=== PATIENT | female | born 1975 | race Caucasian/White ===

== ENCOUNTER 2016-09-06 16:31 | Emergency (ER) | payer OTHER ==
[~2016-09-06] VITALS: Ht 162.6 cm; Wt 102.9 kg
[~2016-09-06 16:31] MED LIST: CYAN10005 PO; GABA-112 PO; SUMA50TA15 PO
[2016-09-06 16:45] VITALS: TEMP 36.6; Ht 162.6 cm; Wt 102.9 kg
[2016-09-06] MEDS ORDERED: MoRPHine SULFATE 4 MG/ML 1 ML CARP\\VIAL IV STA (16:56)
[2016-09-06] MEDS ORDERED: ONDANSETRON INJ 2 MG/ML 2 ML VIAL IV STA (16:56)
[2016-09-06] MEDS ORDERED: LAMO100T16 PO (17:08)
[2016-09-06 17:24] LABS: BASO % 0.5 %; BASO ABS # 0.06 K/uL (0-0.2); COMPLETE YES; EOS % 1.6 %; IG% 0.4 %; LYMPH % 28.4 %; LYMPH ABS # 3.47 K/uL (1.2-3.4); MEAN CELL VOLUME 90.7 fL (80-100); MEAN CORPUSCULAR HEMOGLOBIN 30.1 pg (25-34); MEAN CORPUSCULAR HGB CONC 33.2 g/dl (32-36); MEAN PLATELET VOLUME 10.1 fL (7.4-10.4); MONO % 8.4 %; NEUT % 60.7 %; PLATELET COUNT 309 K/uL (130-400); RED BLOOD COUNT 4.52 M/uL (4.2-5.4); WHITE BLOOD COUNT 12.21 K/uL (4.8-10.8)
[2016-09-06 17:43] LABS: URINE APPEARANCE CLOUDY (CLEAR); URINE BILIRUBIN NEG (NEG); URINE COLOR YELLOW; URINE EPITHELIAL CELL AUTO >30 /lpf (0-5); URINE NITRITE NEG (NEG); URINE SPECIFIC GRAVITY 1.026 (1.000-1.030); UROBILINOGEN NEG (NEG)
[2016-09-06 17:48] LABS: MANUAL MICROSCOPIC REQUIRED? NO; REVIEW REQ? YES
--- NOTE | 2016-09-06 17:52 | DIAGNOSTIC IMAGING REPORT ---
ABDOMEN AND PELVIS CT WITHOUT CONTRAST CT DOSE: 1638.05 mGy.cm HISTORY: Left lower quadrant pain. eval for left stone TECHNIQUE: Multiaxial CT images of the abdomen and pelvis were performed without the use of intravenous and oral contrast according to the standard department stone protocol. COMPARISON STUDY: Abdomen and pelvis CT 09/29/2011. FINDINGS: Stable subcentimeter nodules within the left lower lobe on images 10 and 20 which measure up to 3 mm. These are considered to be benign. No acute fractures within the visualized osseous structures. Old, healed right-sided rib fractures. Small gallstones. The unenhanced liver, spleen, adrenal glands, and pancreas are unremarkable. The bladder is decompressed but likely within normal limits. The uterus and bilateral adnexa are unremarkable. Suboptimal evaluation for bowel pathology due to the lack of intravenous and oral contrast. However, there is no definite bowel wall thickening or obstruction. Colonic diverticulosis. Normal appendix. No renal or ureteral stones. No hydronephrosis. IMPRESSION: 1. No renal stones or hydronephrosis. 2. Cholelithiasis. 3. No bowel wall thickening or obstruction. Electronically signed by: Rome Song M.D. 09/06/2016 5:50 PM Dictated Date/Time: 09/06/2016 5:46 PM
[2016-09-06] MEDS ORDERED: KETOROLAC TROMETHAMINE 30 MG/ML VIAL IV STA (18:05)
[2016-09-06 18:09] LABS: ALKALINE PHOSPHATASE 65 U/L (45-117); ALT/SGPT 27 U/L (12-78); BLOOD UREA NITROGEN 8 mg/dl (7-18); BUN/CREATININE RATIO 8.1 (10-20); CARBON DIOXIDE 22 mmol/L (21-32); CHLORIDE 110 mmol/L (98-107); CREATININE 0.93 mg/dl (0.60-1.20); GLUCOSE 91 mg/dl (70-99); SODIUM 139 mmol/L (136-145)
[2016-09-06] MEDS ORDERED: OXYCODONE IR HOME PACK PO ONE (18:30)
[2016-09-06 18:43] VITALS: BP 109/66; PULSE 67; O2SAT 98
[2016-09-06] MEDS ORDERED: IBUP-1050 PO (21:32)
--- NOTE | 2016-09-06 23:00 | EMERGENCY ROOM VISIT NOTE ---
History Report prepared by Dwaine: Rachele Taylor Under the Supervision of: Dr. Marcos Bull M.D. First contact with patient: 16:48 Chief Complaint: ABDOMINAL PAIN Stated Complaint: LOWER LEFT QUADRANT PAIN History of Present Illness The patient is a 41 year old female who presents to the Emergency Room with complaints of worsening LLQ pain starting yesterday. It began yesterday and resolved after some time. Today the pain began again and was worse that it was initially. She notes that the pain is not as severe as her previous kidney stone and is in a different location. She had pain in her back with her kidney stone. She describes her pain as constant with occasional sharp pain. With the sharp pain she feels lightheaded. The pain does not go into her side. She denies any fever, vomiting, diarrhea, bloody stools, problems urinating, or hematuria. 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 Source of History: patient Onset: yesterday Position: abdomen (LLQ) Quality: sharp Timing: constant, worsening Associated Symptoms: No fevers, No vomiting, No hematochezia, No diarrhea, No urinary symptoms Note: Pt reports feeling lightheaded with the pain. Review of Systems See HPI for pertinent positives & negatives. A total of 10 systems reviewed and were otherwise negative. Past Medical & Surgical Medical Problems: (1) Kidney stones Family History Cancer Diabetes mellitus Kidney disease Kidney stones Social History Smoking Status: Current Every Day Smoker Marital Status: single Housing Status: lives with family Occupation Status: unemployed Current/Historical Medications Scheduled Lamotrigine (Lamictal), 100 MG PO DAILY Scheduled PRN Ibuprofen (Advil), 400 MG PO UD PRN for Headache or Pain Sumatriptan Succinate (Imitrex), 50 MG PO UD PRN for Migraine Allergies Coded Allergies: Metoclopramide (Verified Allergy, Unknown, tachycardia,dystonia, 03/26/16) Physical Exam Vital Signs Date Time Temp Pulse Resp B/P (MAP) Pulse Ox O2 Delivery O2 Flow Rate FiO2 09/06/16 18:43 67 18 109/66 98 09/06/16 17:55 61 16 111/59 96 Room Air 09/06/16 16:45 36.6 74 16 129/67 97 Room Air Physical Exam Constitutional: Vital signs reviewed. Eyes: Pupils are equal round reactive to light. Conjunctiva are noninjected. ENT: Pharynx is clear without erythema or exudate. Mucous membranes are moist. Neck supple without meningeal signs. Respiratory: Clear to auscultation bilaterally. Breath sounds are equal bilaterally. Cardiovascular: Regular rate and rhythm. No rubs or gallops. GI: Soft, nondistended with LLQ tenderness. Bowel sounds are present. Musculoskeletal: No peripheral edema. No CVA tenderness. Integumentary: No cyanosis. Neurological: The patient is awake and alert. No focal deficits. Psychiatric: Normal affect. Medical Decision & Procedures ER Provider Diagnostic Interpretation: Radiology results as stated below per my review and the radiologist's interpretation: ABDOMEN AND PELVIS CT WITHOUT CONTRAST CT DOSE: 1638.05 mGy.cm HISTORY: Left lower quadrant pain. eval for left stone TECHNIQUE: Multiaxial CT images of the abdomen and pelvis were performed without the use of intravenous and oral contrast according to the standard department stone protocol. COMPARISON STUDY: Abdomen and pelvis CT 09/29/2011. FINDINGS: Stable subcentimeter nodules within the left lower lobe on images 10 and 20 which measure up to 3 mm. These are considered to be benign. No acute fractures within the visualized osseous structures. Old, healed right-sided rib fractures. Small gallstones. The unenhanced liver, spleen, adrenal glands, and pancreas are unremarkable. The bladder is decompressed but likely within normal limits. The uterus and bilateral adnexa are unremarkable. Suboptimal evaluation for bowel pathology due to the lack of intravenous and oral contrast. However, there is no definite bowel wall thickening or obstruction. Colonic diverticulosis. Normal appendix. No renal or ureteral stones. No hydronephrosis. IMPRESSION: 1. No renal stones or hydronephrosis. 2. Cholelithiasis. 3. No bowel wall thickening or obstruction. Electronically signed by: Rome Song M.D. 09/06/2016 5:50 PM Dictated Date/Time: 09/06/2016 5:46 PM Laboratory Results 09/06/16 17:05 Red Blood Count 4.52, Mean Corpuscular Volume 90.7, Mean Corpuscular Hemoglobin 30.1, Mean Corpuscular Hemoglobin Concent 33.2, Mean Platelet Volume 10.1, Neutrophils (%) (Auto) 60.7, Lymphocytes (%) (Auto) 28.4, Monocytes (%) (Auto) 8.4, Eosinophils (%) (Auto) 1.6, Basophils (%) (Auto) 0.5, Neutrophils # (Auto) 7.40, Lymphocytes # (Auto) 3.47, Monocytes # (Auto) 1.03, Eosinophils # (Auto) 0.20, Basophils # (Auto) 0.06 09/06/16 17:05 Test 09/06/16 00:00 09/06/16 17:05 Urine Color YELLOW Urine Appearance CLOUDY (CLEAR) Urine pH 5.0 (4.5-7.5) Urine Specific [place] 1.026 (1.000-1.030) Urine Protein NEG (NEG) Urine Glucose (UA) NEG (NEG) Urine Ketones TRACE (NEG) Urine Occult Blood 2+ (NEG) Urine Nitrite NEG (NEG) Urine Bilirubin NEG (NEG) Urine Urobilinogen NEG (NEG) Urine Leukocyte Esterase NEG (NEG) Urine WBC (Auto) 1-5 /hpf (0-5) Urine RBC (Auto) 0-4 /hpf (0-4) Urine Hyaline Casts (Auto) 1-5 /lpf (0-5) Urine Epithelial Cells (Auto) >30 /lpf (0-5) Urine Bacteria (Auto) 1+ (NEG) Urine Crystals CALCIUM OXALATE (NONE White Blood Count 12.21 K/uL (4.8-10.8) Red Blood Count 4.52 M/uL (4.2-5.4) Hemoglobin 13.6 g/dL (12.0-16.0) Hematocrit 41.0 % (37-47) Mean Corpuscular Volume 90.7 fL (80-100) Mean Corpuscular Hemoglobin 30.1 pg (25-34) Mean Corpuscular Hemoglobin Concent 33.2 g/dl (32-36) Platelet Count 309 K/uL (130-400) Mean Platelet Volume 10.1 fL (7.4-10.4) Neutrophils (%) (Auto) 60.7 % Lymphocytes (%) (Auto) 28.4 % Monocytes (%) (Auto) 8.4 % Eosinophils (%) (Auto) 1.6 % Basophils (%) (Auto) 0.5 % Neutrophils # (Auto) 7.40 K/uL (1.4-6.5) Lymphocytes # (Auto) 3.47 K/uL (1.2-3.4) Monocytes # (Auto) 1.03 K/uL (0.11-0.59) Eosinophils # (Auto) 0.20 K/uL (0-0.5) Basophils # (Auto) 0.06 K/uL (0-0.2) RDW Standard Deviation 43.2 fL (36.4-46.3) RDW Coefficient of Variation 13.0 % (11.5-14.5) Immature Granulocyte % (Auto) 0.4 % Immature Granulocyte # (Auto) 0.05 K/uL (0.00-0.02) Urine Test NEG (NEG) Anion Gap 7.0 mmol/L (3-11) Est Creatinine Clear Calc Drug Dose 92.1 ml/min Estimated GFR () 87.9 Estimated GFR (Non- 75.8 BUN/Creatinine Ratio 8.1 (10-20) Calcium Level 9.0 mg/dl (8.5-10.1) Total Bilirubin 0.2 mg/dl (0.2-1) Direct Bilirubin mg/dl (0-0.2) Aspartate Amino Transf (AST/SGOT) U/L (15-37) Alanine Aminotransferase (ALT/SGPT) 27 U/L (12-78) Alkaline Phosphatase 65 U/L (45-117) Total Protein 7.4 gm/dl (6.4-8.2) Albumin 3.4 gm/dl (3.4-5.0) Lipase 132 U/L (73-393) Laboratory results as reviewed by me. Medications Administered Medications (Trade) Dose Ordered Sig/Solomon Route Start Time Stop Time Status Last Admin Dose Admin Morphine Sulfate (MoRPHine SULFATE INJ) 4 mg ONE STAT IV 09/06/16 16:56 09/06/16 16:57 DC 09/06/16 17:20 4 MG Ondansetron HCl (Zofran Inj) 4 mg NOW STAT IV 09/06/16 16:56 09/06/16 16:57 DC 09/06/16 17:20 4 MG Ketorolac Tromethamine (Toradol Inj) 10 mg NOW STAT IV 09/06/16 18:05 09/06/16 18:06 DC 09/06/16 18:16 10 MG Oxycodone HCl (Roxicodone Immediate Rel 5MG Home Pack) 1 homepack UD ONCE PO 09/06/16 18:30 09/06/16 18:31 DC 09/06/16 18:40 1 HOMETXCK ED Course 1651: The patient was evaluated in room B3B. A complete history and physical exam was performed. 1655: Zofran Inj 4 mg IV, Morphine Sulfate 4 mg IV. 1802: I reevaluated the patient. She is feeling better, but still has some pain. I reviewed the CT results with her. 1804: Toradol Inj 10 mg IV. 1820: Upon reevaluation, the patient appeared to have improvement of her symptoms. I discussed tonight's findings with her. She verbalized agreement of the treatment plan. She was discharged home. 1829: Oxycodone HCl 1 homepack PO. Medical Decision This is a 41-year-old female who presents with left sided abdominal pain. Differential diagnosis includes renal colic, hydronephrosis, diverticulitis, abscess, perforation, strain, mass. I did perform a limited focused review of portions of the patient's old chart on the electronic medical record. The patient had a CT abdomen pelvis in 2011 which showed left kidney stone. Medication Reconciliation: I attest that I have personally reviewed the patient' s current medication list. Blood Pressure Screening: Patient was found to have a slightly elevated blood pressure due to circumstances. I do not believe that the patient requires hypertension monitoring. I did evaluate the patient as noted above. IV access was established. I did treat patient with IV morphine and Zofran. I did order and personally review the patient's urine analysis as described above. She has calcium oxalate crystals and hematuria. I did order and review the patient's blood work as noted in the electronic medical record. Her white blood cell count is slightly elevated. This is a nonspecific finding. I did order a CT of the abdomen and pelvis. I did review the images myself as well as the radiology report as described above. There is no evidence of acute process in the abdomen and pelvis. Given that the patient has some hematuria and calcium oxalate crystals , it is possible that she may have passed a stone. I did recommend she follow up with her doctor closely as the exact etiology of her pain is clear. She was discharged in good condition. Impression Primary Impression: Left flank pain Scribe Attestation The scribe's documentation has been prepared under my direct and personally reviewed by me in its entirety. I confirm that the note above accurately reflects all work, treatment, procedures, and medical decision making performed by me. Departure Information Dispostion Home / Self-Care Referrals Dorys Quintero M.D. (PCP) Forms Call Back Authorization, HOME CARE DOCUMENTATION FORM, IMPORTANT VISIT INFORMATION Patient Instructions ED Flank Pain Uncertain Cause, My [facility] Additional Instructions You have been examined and treated today on an emergency basis only. This is not a substitute for, or an effort to provide, complete comprehensive medical care. It is impossible to recognize and treat all injuries or illnesses in a single emergency department visit. It is therefore important that you follow up closely with your physician. Call as soon as possible for an appointment. Return for worsening symptoms or if you develop fever, vomiting, or any other concerning symptoms.
== END 2016-09-06 18:45 | disposition home or self-care (01) ==
LOC: C.EDB 16:32
DX: R10.32 Left lower quadrant pain (principal); F17.200 Nicotine dependence, unspecified, uncomplicated; Z87.442 Personal history of urinary calculi; Z88.8 Allergy status to other drugs, medicaments and biological substances; Z80.9 Family history of malignant neoplasm, unspecified; Z83.3 Family history of diabetes mellitus; Z84.1 Family history of disorders of kidney and ureter

== ENCOUNTER 2016-09-27 12:33 | Emergency (ER) | payer OTHER ==
[~2016-09-27] VITALS: Ht 162.6 cm; Wt 104.0 kg
[~2016-09-27 12:33] MED LIST changes: -CYAN10005 PO; -GABA-112 PO; +IBUP-1050 PO; +LAMO100T16 PO
[2016-09-27 12:35] VITALS: TEMP 36.6; Ht 162.6 cm; Wt 104.0 kg
[2016-09-27] MEDS ORDERED: SODIUM CHLORIDE 0.9% 1000ML 1,000 ML IV STA (12:42)
[2016-09-27] MEDS ORDERED: ONDANSETRON INJ 2 MG/ML 2 ML VIAL IV STA (12:42)
[2016-09-27] MEDS ORDERED: KETOROLAC TROMETHAMINE 30 MG/ML VIAL IV STA (12:42)
[2016-09-27] MEDS: FENTANYL CITRATE INJ 50 MCG/1 ML 2 ML VIAL IV PRN ×2 (13:03→16:41)
[2016-09-27 13:30] LABS: BASO % 0.4 %; BASO ABS # 0.04 K/uL (0-0.2); COMPLETE YES; EOS % 1.9 %; HEMATOCRIT 41.5 % (37-47); IG% 0.3 %; LYMPH ABS # 2.67 K/uL (1.2-3.4); MEAN CORPUSCULAR HEMOGLOBIN 30.3 pg (25-34); MEAN CORPUSCULAR HGB CONC 33.3 g/dl (32-36); MEAN PLATELET VOLUME 9.9 fL (7.4-10.4); MONO % 5.9 %; NEUT % 65.5 %; PLATELET COUNT 280 K/uL (130-400); RED BLOOD COUNT 4.56 M/uL (4.2-5.4); WHITE BLOOD COUNT 10.26 K/uL (4.8-10.8)
[2016-09-27 13:40] LABS: INR 0.9 (0.9-1.1); PROTHROMBIN TIME (PATIENT) 9.8 SECONDS (9.0-12.0)
[2016-09-27 13:47] LABS: BUN/CREATININE RATIO 10.8 (10-20); CALCIUM 8.8 mg/dl (8.5-10.1); CREATININE 0.89 mg/dl (0.60-1.20); POTASSIUM 3.7 mmol/L (3.5-5.1)
[2016-09-27 13:50] LABS: ALB/GLOB RATIO 0.9 (0.9-2)
--- NOTE | 2016-09-27 13:53 | DIAGNOSTIC IMAGING REPORT ---
PELVIC COMPLETE NON OB HISTORY: 41 years Female acute vaginal bleeding COMPARISON: CT abdomen and pelvis 09/06/2016 TECHNIQUE: Multiple real-time sonographic images of the pelvic structures were obtained transabdominally and transvaginally assessing grayscale appearance, color and spectral flow. FINDINGS: Transabdominal: Anteflexed uterus measures 8.6 x 3.5 x 4.9 cm. Urinary bladder is collapsed. Right ovary measures 2.3 x 1.7 x 2.1 cm with arterial inflow documented. The left ovary is not well seen transabdominally. Transvaginal: Anteflexed uterus measures 8.6 x 4.0 x 5.1 cm. Endometrium is homogeneous, 0.7 cm. Calcifications are seen along the anterior aspect of the lower uterine segment suggesting a scar. Nabothian cysts are seen seen, some of which are mildly complex measuring up to 9 x 9 mm. Bilateral ovaries are not visualized secondary to obscuring bowel gas and body habitus. No significant free pelvic fluid. IMPRESSION: 1. Limited study secondary to patient body habitus and obscuring bowel gas. Left ovary is not visualized. 2. Unremarkable sonographic appearance of the right ovary without evidence of torsion. 3. No endometrial thickening or myometrial mass. The above report was generated using voice recognition software. It may contain grammatical, syntax or spelling errors. Electronically signed by: Matt Ang M.D. 09/27/2016 1:52 PM Dictated Date/Time: 09/27/2016 1:47 PM
[2016-09-27] MEDS ORDERED: LITH300T2 PO (13:54)
[2016-09-27 14:01] LABS: PREG INTERNAL NEGATIVE QC NEG CLEAR BACKGROUND; PREG INTERNAL POSITIVE QC POS CONTROL LINE
[2016-09-27 15:30] LABS: URINE APPEARANCE CLEAR (CLEAR); URINE BILIRUBIN NEG (NEG); URINE COLOR YELLOW; URINE NITRITE NEG (NEG); URINE PH 7.5 (4.5-7.5); URINE SPECIFIC GRAVITY 1.004 (1.000-1.030); UROBILINOGEN NEG (NEG)
[2016-09-27 15:35] LABS: MANUAL MICROSCOPIC REQUIRED? NO; REVIEW REQ? YES
[2016-09-27 15:57] LABS: URINE EPITHELIAL CELL AUTO >30 /lpf (0-5)
--- NOTE | 2016-09-27 16:07 | EMERGENCY ROOM VISIT NOTE ---
History Report prepared by Shirleyibeveline: Smith Lora Under the Supervision of: Dr. Kip Lorenzo D.O. First contact with patient: 12:37 Chief Complaint: ABDOMINAL PAIN Stated Complaint: LOWER LEFT PAIN Nursing Triage Summary: LLQ pain getting worse since last night with raghu, seen here 3 wks ago and followed up with PMD for this and they are looking into a ovarian problem History of Present Illness The patient is a 41 year old female who presents to the Emergency Room with complaints of worsening LLQ abdominal pain beginning yesterday. She also complains of nausea, lightheadedness and diaphoresis. She denies any vomiting. The patient has a history of similar pain occurring about a month ago with uncertain cause. She states that her pain is thought to possibly be related to her ovary. She states that her pain is worsened with many things. Source of History: patient Onset: Yesterday Position: abdomen (LLQ) Timing: worsening Associated Symptoms: + diaphoresis, + nausea, No vomiting Note: The patient also complains of lightheadedness. Review of Systems See HPI for pertinent positives & negatives. A total of 10 systems reviewed and were otherwise negative. Past Medical & Surgical Medical Problems: (1) Kidney stones Family History Cancer Diabetes mellitus Kidney disease Kidney stones Social History Smoking Status: Current Every Day Smoker Marital Status: single Housing Status: lives with family Occupation Status: unemployed Current/Historical Medications Scheduled Lamotrigine (Lamictal), 100 MG PO DAILY [place] Carbonate ([place] Carbonate), 900 MG PO QPM Scheduled PRN Ibuprofen (Advil), 400 MG PO UD PRN for Headache or Pain Sumatriptan Succinate (Imitrex), 50 MG PO UD PRN for Migraine Allergies Coded Allergies: Metoclopramide (Verified Allergy, Unknown, tachycardia,dystonia, 03/26/16) Physical Exam Vital Signs Date Time Temp Pulse Resp B/P (MAP) Pulse Ox O2 Delivery O2 Flow Rate FiO2 09/27/16 15:50 65 20 104/54 95 Room Air 09/27/16 13:51 65 16 106/58 96 Room Air 09/27/16 12:54 58 09/27/16 12:35 36.6 59 20 107/57 97 Physical Exam CONSTITUTIONAL/VITAL SIGNS: Reviewed / noted above. GENERAL: Non-toxic in appearance. INTEGUMENTARY: Warm, dry, and [place]. HEAD: Normocephalic. EYES: without scleral icterus or trauma. ENT/OROPHARYNX: clear and moist. LYMPHADENOPATHY/NECK: Is supple without lymphadenopathy or meningismus. RESPIRATORY: Lungs clear and equal. CARDIOVASCULAR: Regular rate and rhythm. GI/ABDOMEN: Soft with tenderness to the left pelvic area . No organomegaly or pulsatile mass. No rebound or guarding. Normal bowel sounds. EXTREMITIES: Warm and well perfused. BACK: No CVA tenderness. NEUROLOGICAL: Intact without focal deficits. PSYCHIATRIC: normal affect. MUSCULOSKELETAL: Normally developed with good muscle tone. Medical Decision & Procedures ER Provider Diagnostic Interpretation: CT results as stated below per my review and radiologist interpretation: PELVIC COMPLETE NON OB FINDINGS: Transabdominal: Anteflexed uterus measures 8.6 x 3.5 x 4.9 cm. Urinary bladder is collapsed. Right ovary measures 2.3 x 1.7 x 2.1 cm with arterial inflow documented. The left ovary is not well seen transabdominally. Transvaginal: Anteflexed uterus measures 8.6 x 4.0 x 5.1 cm. Endometrium is homogeneous, 0.7 cm. Calcifications are seen along the anterior aspect of the lower uterine segment suggesting a scar. Nabothian cysts are seen seen, some of which are mildly complex measuring up to 9 x 9 mm. Bilateral ovaries are not visualized secondary to obscuring bowel gas and body habitus. No significant free pelvic fluid. IMPRESSION: 1. Limited study secondary to patient body habitus and obscuring bowel gas. Left ovary is not visualized. 2. Unremarkable sonographic appearance of the right ovary without evidence of torsion. 3. No endometrial thickening or myometrial mass. The above report was generated using voice recognition software. It may contain grammatical, syntax or spelling errors. Electronically signed by: Matt Ang M.D. Laboratory Results 09/27/16 13:00 Red Blood Count 4.56, Mean Corpuscular Volume 91.0, Mean Corpuscular Hemoglobin 30.3, Mean Corpuscular Hemoglobin Concent 33.3, Mean Platelet Volume 9.9, Neutrophils (%) (Auto) 65.5, Lymphocytes (%) (Auto) 26.0, Monocytes (%) (Auto) 5.9, Eosinophils (%) (Auto) 1.9, Basophils (%) (Auto) 0.4, Neutrophils # (Auto) 6.71, Lymphocytes # (Auto) 2.67, Monocytes # (Auto) 0.61, Eosinophils # (Auto) 0.20, Basophils # (Auto) 0.04 09/27/16 13:00 Test 09/27/16 13:00 09/27/16 14:40 White Blood Count 10.26 K/uL (4.8-10.8) Red Blood Count 4.56 M/uL (4.2-5.4) Hemoglobin 13.8 g/dL (12.0-16.0) Hematocrit 41.5 % (37-47) Mean Corpuscular Volume 91.0 fL (80-100) Mean Corpuscular Hemoglobin 30.3 pg (25-34) Mean Corpuscular Hemoglobin Concent 33.3 g/dl (32-36) Platelet Count 280 K/uL (130-400) Mean Platelet Volume 9.9 fL (7.4-10.4) Neutrophils (%) (Auto) 65.5 % Lymphocytes (%) (Auto) 26.0 % Monocytes (%) (Auto) 5.9 % Eosinophils (%) (Auto) 1.9 % Basophils (%) (Auto) 0.4 % Neutrophils # (Auto) 6.71 K/uL (1.4-6.5) Lymphocytes # (Auto) 2.67 K/uL (1.2-3.4) Monocytes # (Auto) 0.61 K/uL (0.11-0.59) Eosinophils # (Auto) 0.20 K/uL (0-0.5) Basophils # (Auto) 0.04 K/uL (0-0.2) RDW Standard Deviation 44.2 fL (36.4-46.3) RDW Coefficient of Variation 13.4 % (11.5-14.5) Immature Granulocyte % (Auto) 0.3 % Immature Granulocyte # (Auto) 0.03 K/uL (0.00-0.02) Prothrombin Time 9.8 SECONDS (9.0-12.0) Prothromb Time International Ratio 0.9 (0.9-1.1) Activated Partial Thromboplast Time 25.4 SECONDS (21.0-31.0) Partial Thromboplastin Ratio 1.0 Anion Gap 7.0 mmol/L (3-11) Est Creatinine Clear Calc Drug Dose 96.8 ml/min Estimated GFR () 92.7 Estimated GFR (Non- 79.9 BUN/Creatinine Ratio 10.8 (10-20) Calcium Level 8.8 mg/dl (8.5-10.1) Total Bilirubin 0.2 mg/dl (0.2-1) Aspartate Amino Transf (AST/SGOT) 12 U/L (15-37) Alanine Aminotransferase (ALT/SGPT) 25 U/L (12-78) Alkaline Phosphatase 61 U/L (45-117) Total Protein 7.5 gm/dl (6.4-8.2) Albumin 3.5 gm/dl (3.4-5.0) Globulin 4.0 gm/dl (2.5-4.0) Albumin/Globulin Ratio 0.9 (0.9-2) Human Chorionic Gonadotropin, Qual NEG (NEG) Urine Color YELLOW Urine Appearance CLEAR (CLEAR) Urine pH 7.5 (4.5-7.5) Urine Specific [place] 1.004 (1.000-1.030) Urine Protein NEG (NEG) Urine Glucose (UA) NEG (NEG) Urine Ketones NEG (NEG) Urine Occult Blood 2+ (NEG) Urine Nitrite NEG (NEG) Urine Bilirubin NEG (NEG) Urine Urobilinogen NEG (NEG) Urine Leukocyte Esterase NEG (NEG) Urine WBC (Auto) 0 /hpf (0-5) Urine RBC (Auto) 0-4 /hpf (0-4) Urine Hyaline Casts (Auto) 0 /lpf (0-5) Urine Epithelial Cells (Auto) >30 /lpf (0-5) Urine Bacteria (Auto) NEG (NEG) Urine Test NEG (NEG) Laboratory results as stated above per my review. Medications Administered Medications (Trade) Dose Ordered Sig/Solomon Route Start Time Stop Time Status Last Admin Dose Admin Ondansetron HCl (Zofran Inj) 4 mg NOW STAT IV 09/27/16 12:42 09/27/16 12:45 DC 09/27/16 13:02 4 MG Sodium Chloride 1,000 ml @ 999 mls/hr Q1H1M STAT IV 09/27/16 12:42 09/27/16 13:42 DC 09/27/16 13:02 999 MLS/HR Fentanyl Citrate (Fentanyl Inj) 100 mcg Q1H PRN IV 09/27/16 12:45 10/11/16 12:44 09/27/16 13:03 100 MCG Ketorolac Tromethamine (Toradol Inj) 30 mg NOW STAT IV 09/27/16 12:42 09/27/16 12:45 DC 09/27/16 13:03 30 MG ED Course 1240: Previous medical records were reviewed. The patient was evaluated in room C10. A complete history and physical examination was performed. 1242: Ordered Toradol Inj 30 mg IV, Sodium Chloride 1000 ml @ 999 mls/hr IV, Zofran Inj 4 mg IV. 1245: Ordered Fentanyl Inj 100 mcg IV. Medical Decision Differential considered: pancreatitis, hepatitis, or acute cholecystitis, AAA, UTI, pyelonephritis, kidney stones, appendicitis, diverticulitis, shingles, bowel obstruction mesenteric ischemia, intussusception,hernia, ovarian torsion, ruptured ovarian cyst,ectopic , . This is a 41-year-old female who presents to the ED with a chief complaint of abdominal pain. The patient reports pain in the left lower quadrant. It is actually the left lower pelvic region. The patient states that she had symptoms similar to this last month and had a CT scan of the abdomen and pelvis at that time. Nothing was found. She reports associated nausea and vomiting. Her vital signs here are normal. Her physical exam reveals some tenderness in the left low pelvic area. An ultrasound of that area did not show any significant abnormality. CBC is normal, CMP is normal, test is negative. The patient was treated with IV Toradol, IV Zofran, IV fentanyl and IV fluids. She was told the results. She is felt to be stable for discharge and outpatient follow-up. Medication Reconcilliation Current Medication List: was personally reviewed by me Blood Pressure Screening Patient's blood pressure: Normal blood pressure Blood pressure disposition: Did not require urgent referral Impression Primary Impression: Left lower quadrant pain Scribe Attestation The scribe's documentation has been prepared under my direction and personally reviewed by me in its entirety. I confirm that the note above accurately reflects all work, treatment, procedures, and medical decision making performed by me. Departure Information Dispostion Home / Self-Care Referrals Dorys Quintero M.D. (PCP) Patient Instructions My [facility] Additional Instructions Follow-up with your doctor for further care and evaluation in 1-7 days. Return to the emergency department for worsening or new symptoms or any concerns. You have been examined and treated today on an emergency basis only. This is not a substitute for, or an effort to provide, complete comprehensive medical care. It is impossible to recognize and treat all injuries or illnesses in a single emergency department visit. It is therefore important that you follow up closely with your doctor. Call as soon as possible for an appointment.
[2016-09-27] MEDS ORDERED: FENTANYL CITRATE INJ 50 MCG/1 ML 2 ML VIAL IV STA (16:35)
[2016-09-27 16:48] VITALS: BP 103/62; PULSE 63; O2SAT 96
== END 2016-09-27 16:49 | disposition home or self-care (01) ==
LOC: C.EDB 12:34 → C.EDC 16:49
DX: R10.32 Left lower quadrant pain (principal); Z87.440 Personal history of urinary (tract) infections; Z80.9 Family history of malignant neoplasm, unspecified; Z83.3 Family history of diabetes mellitus; Z84.1 Family history of disorders of kidney and ureter; F17.210 Nicotine dependence, cigarettes, uncomplicated; Z79.899 Other long term (current) drug therapy

== ENCOUNTER 2016-09-30 04:59 | Emergency (ER) | payer OTHER ==
[~2016-09-30] VITALS: Ht 165.1 cm; Wt 105.1 kg
[~2016-09-30 04:59] MED LIST changes: +LITH300T2 PO
[2016-09-30] MEDS ORDERED: ONDANSETRON INJ 2 MG/ML 2 ML VIAL IV STA (05:43)
[2016-09-30] MEDS ORDERED: KETOROLAC TROMETHAMINE 30 MG/ML VIAL IV STA (05:43)
[2016-09-30] MEDS ORDERED: SODIUM CHLORIDE 0.9% 1000ML 1,000 ML IV ONE (05:45)
[2016-09-30 06:22] LABS: URINE APPEARANCE CLOUDY (CLEAR); URINE BILIRUBIN NEG (NEG); URINE COLOR YELLOW; URINE EPITHELIAL CELL AUTO >30 /lpf (0-5); URINE NITRITE NEG (NEG); URINE PH 6.5 (4.5-7.5); URINE SPECIFIC GRAVITY 1.019 (1.000-1.030); UROBILINOGEN NEG (NEG); ZZUR CULT IF INDIC CLEAN CATCH YES
[2016-09-30 06:28] LABS: MANUAL MICROSCOPIC REQUIRED? NO; REVIEW REQ? NO
[2016-09-30 06:31] LABS: BASO % 0.5 %; BASO ABS # 0.07 K/uL (0-0.2); COMPLETE YES; EOS % 2.2 %; HEMATOCRIT 39.7 % (37-47); IG% 0.3 %; LYMPH % 27.6 %; MEAN CELL VOLUME 89.8 fL (80-100); MEAN CORPUSCULAR HEMOGLOBIN 30.1 pg (25-34); MEAN CORPUSCULAR HGB CONC 33.5 g/dl (32-36); MEAN PLATELET VOLUME 9.5 fL (7.4-10.4); MONO % 10.5 %; NEUT % 58.9 %; PLATELET COUNT 312 K/uL (130-400); RED BLOOD COUNT 4.42 M/uL (4.2-5.4); WHITE BLOOD COUNT 14.85 K/uL (4.8-10.8)
[2016-09-30 06:48] LABS: BENZODIAZEPINE, URINE NEG (NEG); COCAINE,URINE NEG (NEG); PHENCYCLIDINE, URINE NEG (NEG)
[2016-09-30 06:49] LABS: BUN/CREATININE RATIO 13.1 (10-20); CREATININE 0.88 mg/dl (0.60-1.20)
[2016-09-30 06:52] LABS: ALB/GLOB RATIO 0.9 (0.9-2)
--- NOTE | 2016-09-30 07:15 | EMERGENCY ROOM VISIT NOTE ---
History First contact with patient: 07:09 Chief Complaint: ABDOMINAL PAIN Stated Complaint: LOWER LEFT FLANK PAIN Nursing Triage Summary: Awoke at 0300 this am with severe left lower abdominal/pelvic pain that radiates down front of upper thigh & into back. Patient took "2 oxycodone" at this time with no relief. Also reports nausea. Denies vomitting. Denies dysuria. Reports she is at "the end" of mensus cycle- does not have more than scant amount of bleeding during period. Reports last BM was 09/29 and regular. Rates sharp "stabbing pain #10/10 at this time & is restless on stretcher. Facial grimmacing, moaning & crying at times. History of Present Illness The patient is a 41 year old female who presents to the Emergency Room with complaints of " Lower left flank pain". This case was signed out to me by Hiram Gates PA-C at time of shift change (0700hrs) on 09/30/2016. Please refer to his HPI, JENNIFFER, PE. Patient presented to us today with left lower abdominal pain that began around 3 :30 AM this morning. She's had this off and on. Pain is constant. There is a red scant vaginal discharge of which she notes she has had for quite some time status post uterine ablation. Review of Systems The patient is a 41 year old female who presents to the Emergency Room with complaints of " Lower left flank pain". This case was signed out to me by Hiram Gates PA-C at time of shift change (0700hrs) on 09/30/2016. Please refer to his HPI, ROS, PE. Past Medical/Surgical History Medical Problems: (1) Kidney stones (2) Left lower quadrant abdominal pain of unknown etiology (3) UTI (urinary tract infection) Family History Cancer Diabetes mellitus Kidney disease Kidney stones Social History Smoking Status: Current Every Day Smoker Marital Status: single Housing Status: lives with family Occupation Status: unemployed Current/Historical Medications Scheduled Lamotrigine (Lamictal), 100 MG PO DAILY [place] Carbonate ([place] Carbonate), 900 MG PO QPM Scheduled PRN Ibuprofen (Advil), 400 MG PO UD PRN for Headache or Pain Sumatriptan Succinate (Imitrex), 50 MG PO UD PRN for Migraine Physical Exam Vital Signs Date Time Temp Pulse Resp B/P (MAP) Pulse Ox O2 Delivery O2 Flow Rate FiO2 7/22/17 12:00 36.4 62 16 110/60 (77) 96 Room Air 09/30/16 11:13 96 Room Air 09/30/16 10:28 71 18 108/66 96 Room Air 09/30/16 07:28 69 18 118/66 96 Room Air 09/30/16 06:34 71 24 115/69 98 Room Air 09/30/16 05:03 36.7 62 16 107/73 98 Room Air Physical Exam The patient is a 41 year old female who presents to the Emergency Room with complaints of " Lower left flank pain". This case was signed out to me by Hiram Gates PA-C at time of shift change (0700hrs) on 09/30/2016. Please refer to his HPI, ROS, PE. PELVIC EXAM: The patient's nurse was present to assist with exam, and editorial specialist. The patient was educated upon what her pelvic exam was, and she was offered to decline. Patient did not decline. I explained to her the pelvic exam. The patient was prepared and positioned for best examination. Patient was positioned by nurse. The external genitalia, mons pubis, labia majora, labia minora, clitoris, he urethral meatus, and shortness, Bartholin's glands, perineum, and anus were within normal limits. The speculum was held then a 45 angle and properly lubricated, the speculum was inserted without difficulty to the depth of the cervix. Speculum was then open slowly. Cervix was identified. The cervix was within normal limits and did not display any purulent discharge nor was erythematous. Scant red blood like discharge. At this time 3 samples were taken of the discharge. These were cultured. The speculum was then closed and removed without difficulty. I then explained to the patient that I was in a perform a bimanual pelvic examination. I then introduced the index finger into the vaginal vault, palpated the cervix and cervical os and noted no abnormalities. The uterine body, apex and fundus were then palpated and were within normal limits, and position. The ovaries were then palpated with my left hand pressing over the lower quadrants of the abdomen and my right index finger pressing in the region of the ovary with no abnormal findings. Tenderness was elicited in the left lower quadrant. The exam was concluded, the nurse felt the patient back to her bed. Exam was unremarkable and tolerated well without complication. Medical Decision & Procedures ER Provider Diagnostic Interpretation: Patient: SCHUYLER GARBER Address1: [facility] Rec: [id number] Address2: Acct ID: [id number] [facility] Zip: [facility] [id number] Date: 1975 Sex: F Room/Bed: Ref Phy: Dorys Quintero M.D. SC: LUISA Att Phy: Report #: [id number] Jayla Phy: Dorys Quintero M.D. Test: TV Admit Phy: Public Safety Telecommunicator: ROSALEE Interpreting Phy: Kyree Jaramillo MD Diagnosis: LOWER LEFT FLANK PAIN Ordering Phy: Hiram Gates PA-C Service Date: 09/30/16 Admit Date: 09/30/16 MNE: [id number] CONF: DICTATED BY: Kyree Jaramillo MD]] CC: Hiram Gates PA-C Delozier, Jennifer L., M.D. Flickinger, Bridget B., M.D. Endcc: [~ rep ct add3]] TRANSVAG-FEMALE PELVIS CLINICAL HISTORY: Left lower quadrant abdominal pain. COMPARISON STUDY: CT of the abdomen and pelvis September 06, 2006 and pelvic ultrasound September 27, 2016. TECHNIQUE: Transabdominal and transvaginal sonography of the pelvis was performed. FINDINGS: This exam is compromised by suboptimal penetration. The left ovary was not visualized. No free fluid was identified. The uterus measures 8.7 x 4.1 x 4.7 cm. A few complex nabothian cysts are incidentally noted. Echogenic foci within the uterus may reflect calcifications which are of doubtful significance. Endometrium is heterogeneous, measuring approximately 1 cm in thickness. The right ovary measures 2.3 x 1.8 x 2.4 cm. There was color flow within the right ovary. IMPRESSION: 1. Study compromised by suboptimal penetration. Nonvisualization of the left ovary. 2. No abnormality of the right ovary. 2. Heterogeneous endometrium. Electronically signed by: Kyree Jaramillo M.D. 09/30/2016 7:48 AM Dictated Date/Time: 09/30/2016 7:44 AM Laboratory Results 09/30/16 06:11 Red Blood Count 4.42, Mean Corpuscular Volume 89.8, Mean Corpuscular Hemoglobin 30.1, Mean Corpuscular Hemoglobin Concent 33.5, Mean Platelet Volume 9.5, Neutrophils (%) (Auto) 58.9, Lymphocytes (%) (Auto) 27.6, Monocytes (%) (Auto) 10.5, Eosinophils (%) (Auto) 2.2, Basophils (%) (Auto) 0.5, Neutrophils # (Auto ) 8.74, Lymphocytes # (Auto) 4.10, Monocytes # (Auto) 1.56, Eosinophils # (Auto ) 0.33, Basophils # (Auto) 0.07 09/30/16 06:11 Test 09/30/16 06:05 09/30/16 06:11 09/30/16 08:25 Urine Color YELLOW Urine Appearance CLOUDY (CLEAR) Urine pH 6.5 (4.5-7.5) Urine Specific [place] 1.019 (1.000-1.030) Urine Protein NEG (NEG) Urine Glucose (UA) NEG (NEG) Urine Ketones NEG (NEG) Urine Occult Blood 3+ (NEG) Urine Nitrite NEG (NEG) Urine Bilirubin NEG (NEG) Urine Urobilinogen NEG (NEG) Urine Leukocyte Esterase TRACE (NEG) Urine WBC (Auto) 10-30 /hpf (0-5) Urine RBC (Auto) 5-10 /hpf (0-4) Urine Hyaline Casts (Auto) 1-5 /lpf (0-5) Urine Epithelial Cells (Auto) >30 /lpf (0-5) Urine Bacteria (Auto) 1+ (NEG) Urine Test NEG (NEG) Urine Opiates Screen NEG (NEG) Urine Methadone, Qualitative NEG (NEG) Urine Barbiturates NEG (NEG) Urine Phencyclidine (PCP) Level NEG (NEG) Ur Amphetamine/Methamphetamine NEG (NEG) MDMA (Ecstasy) Screen NEG (NEG) Urine Benzodiazepines Screen NEG (NEG) Urine Cocaine Metabolite NEG (NEG) Urine Marijuana (THC) NEG (NEG) White Blood Count 14.85 K/uL (4.8-10.8) Red Blood Count 4.42 M/uL (4.2-5.4) Hemoglobin 13.3 g/dL (12.0-16.0) Hematocrit 39.7 % (37-47) Mean Corpuscular Volume 89.8 fL (80-100) Mean Corpuscular Hemoglobin 30.1 pg (25-34) Mean Corpuscular Hemoglobin Concent 33.5 g/dl (32-36) Platelet Count 312 K/uL (130-400) Mean Platelet Volume 9.5 fL (7.4-10.4) Neutrophils (%) (Auto) 58.9 % Lymphocytes (%) (Auto) 27.6 % Monocytes (%) (Auto) 10.5 % Eosinophils (%) (Auto) 2.2 % Basophils (%) (Auto) 0.5 % Neutrophils # (Auto) 8.74 K/uL (1.4-6.5) Lymphocytes # (Auto) 4.10 K/uL (1.2-3.4) Monocytes # (Auto) 1.56 K/uL (0.11-0.59) Eosinophils # (Auto) 0.33 K/uL (0-0.5) Basophils # (Auto) 0.07 K/uL (0-0.2) RDW Standard Deviation 44.2 fL (36.4-46.3) RDW Coefficient of Variation 13.4 % (11.5-14.5) Immature Granulocyte % (Auto) 0.3 % Immature Granulocyte # (Auto) 0.05 K/uL (0.00-0.02) Anion Gap 6.0 mmol/L (3-11) Est Creatinine Clear Calc Drug Dose 100.2 ml/min Estimated GFR () 93.9 Estimated GFR (Non- 81.0 BUN/Creatinine Ratio 13.1 (10-20) Calcium Level 9.0 mg/dl (8.5-10.1) Total Bilirubin 0.2 mg/dl (0.2-1) Aspartate Amino Transf (AST/SGOT) 11 U/L (15-37) Alanine Aminotransferase (ALT/SGPT) 25 U/L (12-78) Alkaline Phosphatase 60 U/L (45-117) Total Protein 7.1 gm/dl (6.4-8.2) Albumin 3.4 gm/dl (3.4-5.0) Globulin 3.7 gm/dl (2.5-4.0) Albumin/Globulin Ratio 0.9 (0.9-2) Date/Time Source Procedure Growth Status 09/30/16 08:25 Vaginal Swab Trichomonas Preparation - Final Complete Medications Administered Medications (Trade) Dose Ordered Sig/Solomon Route Start Time Stop Time Status Last Admin Dose Admin Sodium Chloride 1,000 ml @ 999 mls/hr Q1H1M ONCE IV 09/30/16 05:45 09/30/16 06:45 DC 09/30/16 06:18 999 MLS/HR Ketorolac Tromethamine (Toradol Inj) 30 mg NOW STAT IV 09/30/16 05:43 09/30/16 05:45 DC 09/30/16 06:17 30 MG Ondansetron HCl (Zofran Inj) 4 mg NOW STAT IV 09/30/16 05:43 09/30/16 05:45 DC 09/30/16 06:17 4 MG Hydromorphone HCl (Dilaudid Inj) 1 mg NOW STAT IV 09/30/16 07:58 09/30/16 07:59 DC 09/30/16 08:05 1 MG Hydromorphone HCl (Dilaudid Inj) 0.5 mg NOW STAT IV 09/30/16 09:59 09/30/16 10:00 DC 09/30/16 10:27 0.5 MG Ceftriaxone Sodium 1000 mg/ Dextrose 60 ml @ 100 mls/hr NOW STAT IV 09/30/16 10:42 09/30/16 11:17 DC 09/30/16 10:42 100 MLS/HR Ketorolac Tromethamine (Toradol Inj) 30 mg Q6H PRN IV 09/30/16 11:00 10/05/16 10:59 09/30/16 12:52 30 MG Medical Decision Patient was seen and evaluated as above. Patient case was signed out to me at shift change. At this point the last test result with the ultrasound we were waiting for. This case was signed out to me by Hiram Gates PA-C. This is the patient's third visit to the emergency department in 30 days. I went to introduce myself to the patient, and she was at ultrasound. Upon her return, I introduced myself to the patient and she appeared agitated. She stated that she was filing a complaint, stating that she had laid in pain for 2 hours. She also states that at ultrasound she wanted pain medication and was denied. I informed her that unfortunately I am just starting the shift, and was unaware of that. I apologized to the patient. I reviewed her previous visits, as well as the [place] drug monitoring system. The patient has only one prescription in the [place] drug monitoring system, therefore I feel comfortable providing her with a narcotic medication here to try and help manage her pain as the Toradol she was provided subjectively did not work. She was given 1 mg of Dilaudid IV, and was reevaluated and was feeling much better. Pelvic exam was performed, and reveals a scant reddish discharge from the cervix, otherwise unremarkable other than tenderness elicited in the left lower quadrant/suprapubic region. Cultures and swabs were obtained. Patient's CBC reveals a leukocytosis of 14.85 which is higher than it was on the th of this month, and the th of last month. No anemia. CMP reveals chloride high at 108 , glucose high at 105, AST low at 11. Urine reveals 3+ occult blood, trace leukocyte esterase, 10-30 white blood cells, 5-10 red blood cells, greater than 30 epithelial cells, and 1+ urine bacteria. There are no nitrites. I will defer for culture. Urine test is negative. Urine swab results pending. Ultrasound reveals nonvisualization of the cervix. Patient was reevaluated and her pain was returning. She was given 0.5 mg of Dilaudid. I discussed with the patient different treatment options, and unfortunately due to the difficulty in controlling her pain, leukocytosis, and abdominal pain of unknown etiology do believe that perhaps inpatient admission is warranted. Although I'm unable to completely explain the patient's pain, and cannot completely rule out drug-seeking behavior, I will give the patient benefit of the doubt in this case by considering admission. The patient was thoroughly educated upon treatment options, and requested to stay in the hospital. I discussed the case with my attending, and subsequently the hospitalist. Please refer to further evaluation and management regarding her stay. In evaluation treatment this patient following differential diagnoses were entertained: Drug-seeking behavior, pelvic etiologies, diverticulitis, among others. [place] Drug Monitoring Program Search Results: patient reviewed within database, no issues identified Impression Primary Impression: Left lower quadrant abdominal pain of unknown etiology Departure Information Dispostion Admitted as an inpatient Condition FAIR Referrals Dorys Quintero M.D. (PCP) Patient Instructions My [facility]
--- NOTE | 2016-09-30 07:49 | DIAGNOSTIC IMAGING REPORT ---
TRANSVAG-FEMALE PELVIS CLINICAL HISTORY: Left lower quadrant abdominal pain. COMPARISON STUDY: CT of the abdomen and pelvis September 06, 2006 and pelvic ultrasound September 27, 2016. TECHNIQUE: Transabdominal and transvaginal sonography of the pelvis was performed. FINDINGS: This exam is compromised by suboptimal penetration. The left ovary was not visualized. No free fluid was identified. The uterus measures 8.7 x 4.1 x 4.7 cm. A few complex nabothian cysts are incidentally noted. Echogenic foci within the uterus may reflect calcifications which are of doubtful significance. Endometrium is heterogeneous, measuring approximately 1 cm in thickness. The right ovary measures 2.3 x 1.8 x 2.4 cm. There was color flow within the right ovary. IMPRESSION: 1. Study compromised by suboptimal penetration. Nonvisualization of the left ovary. 2. No abnormality of the right ovary. 2. Heterogeneous endometrium. Electronically signed by: Kyree Jaramillo M.D. 09/30/2016 7:48 AM Dictated Date/Time: 09/30/2016 7:44 AM
[2016-09-30] MEDS ORDERED: HYDROmorphone INJ 1 MG/ML SYR IV STA (07:58)
[2016-09-30] MEDS ORDERED: HYDROmorphone INJ 0.5 MG/0.5 ML SYR IV STA (09:59)
[2016-09-30] MEDS ORDERED: CEFTRIAXONE SOD INJ 1,000 MG in DEXTROSE 5% 50ML 50 ML IV STA (10:42)
[2016-09-30] MEDS ORDERED: SUMATRIPTAN SUCCINATE 50 MG TAB PO PRN (10:45)
[2016-09-30] MEDS ORDERED: ACETAMINOPHEN 325 MG TAB PO PRN (10:45)
[2016-09-30] MEDS ORDERED: IBUPROFEN 200 MG TAB PO PRN (10:45)
[2016-09-30] MEDS ORDERED: ONDANSETRON INJ 2 MG/ML 2 ML VIAL IV PRN (10:45)
[2016-09-30] MEDS ORDERED: KETOROLAC TROMETHAMINE 30 MG/ML VIAL IV PRN (11:00)
[2016-09-30] MEDS ORDERED: OPTIRAY 320 IV PRN (11:00)
[2016-09-30 11:13] VITALS: O2SAT 96; Ht 165.1 cm; Wt 105.1 kg
[2016-09-30 12:00] VITALS: BP 110/60; PULSE 62; TEMP 36.4; O2SAT 96
[2016-09-30] MEDS ORDERED: IV FLUIDS COMPLETED PRN (12:00)
[2016-09-30] MEDS ORDERED: SODIUM CHLORIDE 0.9% 1000ML 1,000 ML IV SCH (12:30)
--- NOTE | 2016-09-30 14:21 | DIAGNOSTIC IMAGING REPORT ---
CT OF THE ABDOMEN AND PELVIS WITH CONTRAST CLINICAL HISTORY: Left lower quadrant abdominal pain,r/o ovarian cause,internal hernia,mass COMPARISON STUDY: CT of the abdomen and pelvis September 06, 2016 and pelvic ultrasound September 30, 2016. TECHNIQUE: Following IV administration of 94 mL of Optiray-320, axial images of the abdomen and pelvis were obtained from the lung bases to the proximal femurs. Images were reviewed in the axial, sagittal, and coronal planes. IV contrast was administered without complication. A dose lowering technique was utilized adhering to the principles of ALARA. CT DOSE: 1261.96 mGy.cm FINDINGS: The liver, spleen, adrenal glands and pancreas are normal. Several subcentimeter renal lesions are too small to characterize but likely benign. There is no hydronephrosis. There are no ureteral calculi. There are scattered colonic diverticula without evidence for acute diverticulitis. The ovaries are not enlarged. There is no bowel obstruction. There is a tiny fat-containing umbilical hernia. Skeletal structures are unremarkable. No lymphadenopathy is present. There is no abscess. The appendix is normal. IMPRESSION: 1. No acute process within the abdomen or pelvis. 2. Normal size ovaries. Normal appendix. No bowel obstruction. No left lower quadrant hernia. Tiny fat-containing umbilical hernia. Electronically signed by: Kyree Jaramillo M.D. 09/30/2016 2:19 PM Dictated Date/Time: 09/30/2016 2:14 PM
[2016-09-30] MEDS ORDERED: HYDROmorphone INJ 0.5 MG/0.5 ML SYR IV PRN (16:15)
[2016-09-30 16:25] VITALS: BP 114/73; PULSE 61; TEMP 36.4; O2SAT 97
[2016-09-30] MEDS ORDERED: LITHIUM CARBONATE 300 MG TAB PO SCH (21:00)
[2016-09-30] MEDS ORDERED: ENOXAPARIN 40 MG/0.4 ML SYR SQ SCH (21:00)
--- NOTE | 2016-09-30 22:03 | EMERGENCY ROOM VISIT NOTE ---
History First contact with patient: 05:07 Chief Complaint: ABDOMINAL PAIN Stated Complaint: LOWER LEFT QUADRANT PAIN OF UNKNOWN ETIOLOGY,UTI Nursing Triage Summary: Awoke at 0300 this am with severe left lower abdominal/pelvic pain that radiates down front of upper thigh & into back. Patient took "2 oxycodone" at this time with no relief. Also reports nausea. Denies vomitting. Denies dysuria. Reports she is at "the end" of mensus cycle- does not have more than scant amount of bleeding during period. Reports last BM was 09/29 and regular. Rates sharp "stabbing pain #10/10 at this time & is restless on stretcher. Facial grimmacing, moaning & crying at times. History of Present Illness The patient is a 41 year old female who presents to the Emergency Room with complaints of severe left lower quadrant abdominal pain she states radiates into her back and down her left thigh. The patient has been seen by multiple providers over the past one month with this complaint. Her initial visit was about one month ago where a CT scan was performed without significant findings. She evidently followed up with her primary care physician who referred her to [facility] and ordered outpatient ultrasound. The patient did not wait for the outpatient ultrasound and came to the emergency department a second time, about 3 days ago, where the ultrasound was performed. The patient ultrasound did not show visualization of the ovary at that time, however she felt better after pain medication. She evidently follow-up and another time with her primary care physician, and has an appointment with [facility] in [place] next month. She states that her pain returned about one hour ago when she woke from sleep. She has not had nausea or vomiting. No urinary or vaginal symptoms. She rates her discomfort a 10/10 and did take 2 oxycodone just prior to arrival. Review of Systems More than 10 systems were reviewed and otherwise negative with the exception of history of present illness. Past Medical/Surgical History Medical Problems: (1) Kidney stones (2) Left lower quadrant abdominal pain of unknown etiology (3) UTI (urinary tract infection) Family History Cancer Diabetes mellitus Kidney disease Kidney stones Social History Smoking Status: Current Every Day Smoker Marital Status: single Housing Status: lives with family Occupation Status: unemployed Current/Historical Medications Scheduled Lamotrigine (Lamictal), 100 MG PO DAILY [place] Carbonate ([place] Carbonate), 900 MG PO QPM Scheduled PRN Ibuprofen (Advil), 400 MG PO UD PRN for Headache or Pain Sumatriptan Succinate (Imitrex), 50 MG PO UD PRN for Migraine Physical Exam Vital Signs Date Time Temp Pulse Resp B/P (MAP) Pulse Ox O2 Delivery O2 Flow Rate FiO2 09/30/16 12:00 36.4 62 16 110/60 (77) 96 Room Air 09/30/16 11:13 96 Room Air 09/30/16 10:28 71 18 108/66 96 Room Air 09/30/16 07:28 69 18 118/66 96 Room Air 09/30/16 06:34 71 24 115/69 98 Room Air 09/30/16 05:03 36.7 62 16 107/73 98 Room Air Pain Rating (0-10): 0 Physical Exam VITALS: Vitals are noted on the nurse's note and reviewed by myself. Vital signs stable. GENERAL: Well-developed, well-nourished, white female who is very animated in expressing her discomfort. She is moderately cooperative and requesting pain medication. HEAD: Normocephalic atraumatic. HEART: Regular rate and rhythm without murmurs gallops or rubs. LUNGS: Clear to auscultation bilaterally without wheezes, rales or rhonchi. No retractions or accessory muscle use. ABDOMEN: Positive normal bowel sounds x 4. Soft, nontender, without masses or organomegaly. No guarding or rebound tenderness. No CVA tenderness. MUSCULOSKELETAL: No muscle atrophy, erythema, or edema noted. Full range of motion without joint tenderness in all extremities. Medical Decision & Procedures Laboratory Results 09/30/16 06:11 Red Blood Count 4.42, Mean Corpuscular Volume 89.8, Mean Corpuscular Hemoglobin 30.1, Mean Corpuscular Hemoglobin Concent 33.5, Mean Platelet Volume 9.5, Neutrophils (%) (Auto) 58.9, Lymphocytes (%) (Auto) 27.6, Monocytes (%) (Auto) 10.5, Eosinophils (%) (Auto) 2.2, Basophils (%) (Auto) 0.5, Neutrophils # (Auto ) 8.74, Lymphocytes # (Auto) 4.10, Monocytes # (Auto) 1.56, Eosinophils # (Auto ) 0.33, Basophils # (Auto) 0.07 09/30/16 06:11 Test 09/30/16 06:05 09/30/16 06:11 09/30/16 08:25 Urine Color YELLOW Urine Appearance CLOUDY (CLEAR) Urine pH 6.5 (4.5-7.5) Urine Specific [place] 1.019 (1.000-1.030) Urine Protein NEG (NEG) Urine Glucose (UA) NEG (NEG) Urine Ketones NEG (NEG) Urine Occult Blood 3+ (NEG) Urine Nitrite NEG (NEG) Urine Bilirubin NEG (NEG) Urine Urobilinogen NEG (NEG) Urine Leukocyte Esterase TRACE (NEG) Urine WBC (Auto) 10-30 /hpf (0-5) Urine RBC (Auto) 5-10 /hpf (0-4) Urine Hyaline Casts (Auto) 1-5 /lpf (0-5) Urine Epithelial Cells (Auto) >30 /lpf (0-5) Urine Bacteria (Auto) 1+ (NEG) Urine Test NEG (NEG) Urine Opiates Screen NEG (NEG) Urine Methadone, Qualitative NEG (NEG) Urine Barbiturates NEG (NEG) Urine Phencyclidine (PCP) Level NEG (NEG) Ur Amphetamine/Methamphetamine NEG (NEG) MDMA (Ecstasy) Screen NEG (NEG) Urine Benzodiazepines Screen NEG (NEG) Urine Cocaine Metabolite NEG (NEG) Urine Marijuana (THC) NEG (NEG) White Blood Count 14.85 K/uL (4.8-10.8) Red Blood Count 4.42 M/uL (4.2-5.4) Hemoglobin 13.3 g/dL (12.0-16.0) Hematocrit 39.7 % (37-47) Mean Corpuscular Volume 89.8 fL (80-100) Mean Corpuscular Hemoglobin 30.1 pg (25-34) Mean Corpuscular Hemoglobin Concent 33.5 g/dl (32-36) Platelet Count 312 K/uL (130-400) Mean Platelet Volume 9.5 fL (7.4-10.4) Neutrophils (%) (Auto) 58.9 % Lymphocytes (%) (Auto) 27.6 % Monocytes (%) (Auto) 10.5 % Eosinophils (%) (Auto) 2.2 % Basophils (%) (Auto) 0.5 % Neutrophils # (Auto) 8.74 K/uL (1.4-6.5) Lymphocytes # (Auto) 4.10 K/uL (1.2-3.4) Monocytes # (Auto) 1.56 K/uL (0.11-0.59) Eosinophils # (Auto) 0.33 K/uL (0-0.5) Basophils # (Auto) 0.07 K/uL (0-0.2) RDW Standard Deviation 44.2 fL (36.4-46.3) RDW Coefficient of Variation 13.4 % (11.5-14.5) Immature Granulocyte % (Auto) 0.3 % Immature Granulocyte # (Auto) 0.05 K/uL (0.00-0.02) Anion Gap 6.0 mmol/L (3-11) Est Creatinine Clear Calc Drug Dose 100.2 ml/min Estimated GFR () 93.9 Estimated GFR (Non- 81.0 BUN/Creatinine Ratio 13.1 (10-20) Calcium Level 9.0 mg/dl (8.5-10.1) Total Bilirubin 0.2 mg/dl (0.2-1) Aspartate Amino Transf (AST/SGOT) 11 U/L (15-37) Alanine Aminotransferase (ALT/SGPT) 25 U/L (12-78) Alkaline Phosphatase 60 U/L (45-117) Total Protein 7.1 gm/dl (6.4-8.2) Albumin 3.4 gm/dl (3.4-5.0) Globulin 3.7 gm/dl (2.5-4.0) Albumin/Globulin Ratio 0.9 (0.9-2) Date/Time Source Procedure Growth Status 09/30/16 08:25 Vaginal Swab Trichomonas Preparation - Final Complete Medications Administered Medications (Trade) Dose Ordered Sig/Solomon Route Start Time Stop Time Status Last Admin Dose Admin Sodium Chloride 1,000 ml @ 999 mls/hr Q1H1M ONCE IV 09/30/16 05:45 09/30/16 06:45 DC 09/30/16 06:18 999 MLS/HR Ketorolac Tromethamine (Toradol Inj) 30 mg NOW STAT IV 09/30/16 05:43 09/30/16 05:45 DC 09/30/16 06:17 30 MG Ondansetron HCl (Zofran Inj) 4 mg NOW STAT IV 09/30/16 05:43 09/30/16 05:45 DC 09/30/16 06:17 4 MG Hydromorphone HCl (Dilaudid Inj) 1 mg NOW STAT IV 09/30/16 07:58 09/30/16 07:59 DC 09/30/16 08:05 1 MG Hydromorphone HCl (Dilaudid Inj) 0.5 mg NOW STAT IV 09/30/16 09:59 09/30/16 10:00 DC 09/30/16 10:27 0.5 MG Ceftriaxone Sodium 1000 mg/ Dextrose 60 ml @ 100 mls/hr NOW STAT IV 09/30/16 10:42 09/30/16 11:17 DC 09/30/16 10:42 100 MLS/HR Ondansetron HCl (Zofran Inj) 4 mg Q6H PRN IV 09/30/16 10:45 10/30/16 10:44 09/30/16 20:18 4 MG Ibuprofen (Advil Tab) 400 mg Q6H PRN PO 09/30/16 10:45 10/30/16 10:44 09/30/16 20:25 400 MG Ketorolac Tromethamine (Toradol Inj) 30 mg Q6H PRN IV 09/30/16 11:00 10/05/16 10:59 09/30/16 12:52 30 MG ED Course Physical exam and history were performed. Nursing notes, EMR, and Medication List were personally reviewed. Patient appears to have left lower quadrant abdominal pain for essentially the past one hour. She has had multiple visits to the emergency department over the past month with this complaint. She certainly does not appear in significant distress and her exam is nontoxic. She does not have reproducible tenderness. She is very fixated on getting pain medication. She has followed with her primary care physician and evidently is scheduled to see [facility]. The patient has taken oxycodone prior to arrival. IV access was established and labs were obtained. Patient was hydrated with normal saline and given IV Toradol for additional pain control. Ultrasound was performed. The patient's blood work is as above and was reviewed. She does have an elevated white blood cell count of 14,000, which has been fairly common for her. She does not have a significant anemia or electrolyte imbalance. Her urine may represent UTI, however there is concern that may also be contaminated. She is not . After receiving pain medication and being sent to ultrasound the patient immediately began requesting stronger pain medication. I do not have a distinct etiology for her symptoms at this time, and requested that she complete the ultrasound as she is early had narcotics and anti-inflammatories at this point. The patient was having her ultrasound performed at the time of shift change. The case was discussed with my colleague Jason Brown PA-C who will assume care at this time. Pending the ultrasound reports the patient may need a pelvic examination and possibly antibiotics for a UTI. Please see Mr Brown's dictation for further patient course, plan, and disposition. The chart was completed utilizing [employer] Speech Voice Recognition Software. Grammatical errors, random word insertions, pronoun errors, and incomplete sentences are an occasional consequence of this system due to software limitations, ambient noise, and hardware issues. Any formal questions or concerns about the content, text, or information contained within the body of this dictation should be directly addressed to the provider for clarification. . Medical Decision Differential diagnosis: Etiologies such as ovarian cyst, ovarian torsion, , ectopic , drug-seeking, appendicitis, diverticulitis, PUD, biliary pathology, UTI, pancreatitis, obstruction, mesenteric ischemia, aortic pathology, infections, inflammatory bowel disease, renal colic, as well as others were entertained. Medication Reconcilliation Current Medication List: was personally reviewed by me Impression Primary Impression: Left lower quadrant abdominal pain of unknown etiology Departure Information Dispostion Still a Patient Condition FAIR Referrals Dorys Quintero M.D. (PCP) Forms Call Back Authorization, HOME CARE DOCUMENTATION FORM, IMPORTANT VISIT INFORMATION Patient Instructions My [facility]
--- NOTE | 2016-09-30 22:54 | Progress Note ---
Internal Med Progress Note Date of Service: Sep 30, 2016. Provider Documentation: Patient presented requesting to be discharged from hospital [facility]. Nobody was going to take care of her dogs at home. Still with abdominal pain of one-month duration. No difference after IV ceftriaxone given. Vital Signs: Date Time Temp Pulse Resp B/P (MAP) Pulse Ox O2 Delivery O2 Flow Rate FiO2 09/30/16 20:00 Room Air 09/30/16 16:25 36.4 61 18 114/73 (87) 97 Room Air 09/30/16 16:00 Room Air 09/30/16 12:00 36.4 62 16 110/60 (77) 96 Room Air 09/30/16 11:13 96 Room Air 09/30/16 10:28 71 18 108/66 96 Room Air 09/30/16 07:28 69 18 118/66 96 Room Air 09/30/16 06:34 71 24 115/69 98 Room Air 09/30/16 05:03 36.7 62 16 107/73 98 Room Air Lab Results: Results Past 24 Hours Test 09/30/16 06:05 09/30/16 06:11 09/30/16 08:25 09/30/16 12:55 Range/Units Urine Color YELLOW Urine Appearance CLOUDY CLEAR Urine pH 6.5 4.5-7.5 Urine Specific [place] 1.019 1.000-1.030 Urine Protein NEG NEG Urine Glucose (UA) NEG NEG Urine Ketones NEG NEG Urine Occult Blood 3+ NEG Urine Nitrite NEG NEG Urine Bilirubin NEG NEG Urine Urobilinogen NEG NEG Urine Leukocyte Esterase TRACE NEG Urine WBC (Auto) 10-30 0-5 /hpf Urine RBC (Auto) 5-10 0-4 /hpf Urine Hyaline Casts (Auto) 1-5 0-5 /lpf Urine Epithelial Cells (Auto) >30 0-5 /lpf Urine Bacteria (Auto) 1+ NEG Urine Test NEG NEG Urine Opiates Screen NEG NEG Urine Methadone, Qualitative NEG NEG Urine Barbiturates NEG NEG Urine Phencyclidine (PCP) Level NEG NEG Ur Amphetamine/Methamphetamine NEG NEG MDMA (Ecstasy) Screen NEG NEG Urine Benzodiazepines Screen NEG NEG Urine Cocaine Metabolite NEG NEG Urine Marijuana (THC) NEG NEG White Blood Count 14.85 4.8-10.8 K/uL Red Blood Count 4.42 4.2-5.4 M/uL Hemoglobin 13.3 12.0-16.0 g/dL Hematocrit 39.7 37-47 % Mean Corpuscular Volume 89.8 80-100 fL Mean Corpuscular Hemoglobin 30.1 25-34 pg Mean Corpuscular Hemoglobin Concent 33.5 32-36 g/dl Platelet Count 312 130-400 K/uL Mean Platelet Volume 9.5 7.4-10.4 fL Neutrophils (%) (Auto) 58.9 % Lymphocytes (%) (Auto) 27.6 % Monocytes (%) (Auto) 10.5 % Eosinophils (%) (Auto) 2.2 % Basophils (%) (Auto) 0.5 % Neutrophils # (Auto) 8.74 1.4-6.5 K/uL Lymphocytes # (Auto) 4.10 1.2-3.4 K/uL Monocytes # (Auto) 1.56 0.11-0.59 K/uL Eosinophils # (Auto) 0.33 0-0.5 K/uL Basophils # (Auto) 0.07 0-0.2 K/uL RDW Standard Deviation 44.2 36.4-46.3 fL RDW Coefficient of Variation 13.4 11.5-14.5 % Immature Granulocyte % (Auto) 0.3 % Immature Granulocyte # (Auto) 0.05 0.00-0.02 K/uL Sodium Level 139 136-145 mmol/L Potassium Level 4.0 3.5-5.1 mmol/L Chloride Level 108 98-107 mmol/L Carbon Dioxide Level 25 21-32 mmol/L Anion Gap 6.0 3-11 mmol/L Blood Urea Nitrogen 12 7-18 mg/dl Creatinine 0.88 0.60-1.20 mg/dl Est Creatinine Clear Calc Drug Dose 100.2 ml/min Estimated GFR () 93.9 Estimated GFR (Non- 81.0 BUN/Creatinine Ratio 13.1 10-20 Random Glucose 105 70-99 mg/dl Calcium Level 9.0 8.5-10.1 mg/dl Total Bilirubin 0.2 0.2-1 mg/dl Aspartate Amino Transf (AST/SGOT) 11 15-37 U/L Alanine Aminotransferase (ALT/SGPT) 25 12-78 U/L Alkaline Phosphatase 60 45-117 U/L Total Protein 7.1 6.4-8.2 gm/dl Albumin 3.4 3.4-5.0 gm/dl Globulin 3.7 2.5-4.0 gm/dl Albumin/Globulin Ratio 0.9 0.9-2 [place] Level 0.6 0.6-1.2 mMOL/L Microbiology Results 09/30/16 Trichomonas Preparation - Final, Complete 09/30/16 Gram Stain - Final, Resulted 09/30/16 Genital Culture, Resulted Pending 09/30/16 Urine Culture, Received Pending
--- NOTE | 2016-09-30 23:03 | Discharge Instructions ---
Discharge Instructions Date of Service Sep 30, 2016. Admission Reason for Admission: Lower Left Quadrant Pain Of Unknown Etiology,Uti Discharge Discharge Diagnosis / Problem: recurrent abdominal pain, unclear etiology Discharge Goals Goal(s): Decrease discomfort, Improve function Activity Recommendations Activity Limitations: resume your previous activity Lifting Limitations: none . Instructions / Follow-Up Instructions / Follow-Up Follow-up with PCP next week. Return to ER for worsening of abdominal pain, bleeding, fever or chills. Current Hospital Diet Patient's current hospital diet: Regular Diet Discharge Diet Recommended Diet: Regular Diet Pending Studies Studies pending at discharge: yes List of pending studies: Genital cultures Urine cultures Medical Emergencies . Who to Call and When: Medical Emergencies: If at any time you feel your situation is an emergency, please call 911 immediately. . Non-Emergent Contact Non-Emergency issues call your: Primary Care Provider . . "Provider Documentation" section prepared by Shan Santillan. . VTE Core Measure Inpt VTE Proph given/why not?: Enoxaparin (Lovenox)SQ
[2016-09-30 23:06] VITALS: BP 114/73; PULSE 61; TEMP 36.4; O2SAT 97
--- NOTE | 2016-10-01 00:12 | DISCHARGE SUMMARY ---
PRIMARY CARE PROVIDER: Dr. Quintero. Date of admission: 09/30/2016 Date of discharge: 09/30/2016 DIAGNOSIS ON ADMISSION: LLQ pain DIAGNOSIS ON DISCHARGE: Recurrent abdominal pain, unclear etiology. MEDICATIONS ON DISCHARGE: Ibuprofen 400 mg p.o. q. 6 hours p.r.n. for pain not relieved by Tylenol (take w/ food), Lamictal 100 mg p.o. daily, lithium carbonate 900 mg at night, Imitrex p.r.n. (No new meds prescribed upon discharge.) HISTORY OF PRESENT COMPLAINT as per admitting provider: She is a 41-year-old female with a significant past medical history including depression and bipolar disorder and PTSD and chronic back and neck pain, on disability, apparently has been complaining of left lower quadrant abdominal pain for the last few days. She complained to have a left quadrant pain last Sunday and at that time she was in the Emergency Room, she has had CAT scan of the abdomen that was unremarkable and she went home. She has had 2 more ER visit since then with left lower quadrant pain. Apparent tests including UA examination and ultrasound of the pelvis did not show any significant findings and she was sent home. She is back here today with same pain involving the left lower quadrant and the pain is constant with some exacerbation at times. She denies to have any fever, chills or rigors with it. She denies to have any problem with her bowel or urinary tract. She does not have any frequent dysuria or any foul-smelling urine, according to her. No fever, chills or rigors. No cough or phlegm and no nausea or vomiting on presentation. In the Emergency Room, she has had the usual workup that came out to be negative. Her white count was slightly elevated and UA examination did show possible infection. From that point, she was admitted to telemetry and medical floor for observation and a CT scan of the abdomen and pelvis was ordered with IV and oral contrast to find out more about the area. HOSPITAL COURSE: CT abdomen and pelvis showed no acute process. Normal size ovaries, normal appendix, no bowel obstruction, tiny umbilical hernia. Patient received a dose of IV ceftriaxone for possible UTI. Pain still suboptimal but patient insisted on leaving the hospital tonight because no one would take care of her dogs. Patient was instructed to return to the emergency room for worsening abdominal pain, fever, chills, or bleeding. No antibiotic prescription given on discharge as UTI unlikely given patient's history of one month's duration and unchanged symptoms despite Ceftriaxone. Follow up with PCP next week. Total time to dictate this discharge summary was 10 minutes. MTDD
--- NOTE | 2016-10-01 00:35 | HISTORY & PHYSICAL EXAMINATION ---
DATE OF ADMISSION: 09/30/2016 PRIMARY CARE PROVIDER: Dr. Quintero from [facility]. CHIEF COMPLAINT: Ongoing left lower quadrant abdominal pain for a while. HISTORY OF PRESENT COMPLAINT: She is a 41-year-old female with a significant past medical history including depression and bipolar disorder and PTSD and chronic back and neck pain, on disability, apparently has been complaining of left lower quadrant abdominal pain for the last few days. She complained to have a left quadrant pain last Sunday and at that time she was in the Emergency Room, she has had CAT scan of the abdomen that was unremarkable and she went home. She has had 2 more ER visit since then with left lower quadrant pain. Apparent tests including UA examination and ultrasound of the pelvis did not show any significant findings and she was sent home. She is back here today with same pain involving the left lower quadrant and the pain is constant with some exacerbation at times. She denies to have any fever, chills or rigors with it. She denies to have any problem with her bowel or urinary tract. She does not have any frequent dysuria or any foul-smelling urine, according to her. No fever, chills or rigors. No cough or phlegm and no nausea or vomiting on presentation. In the Emergency Room, she has had the usual workup that came out to be negative. Her white count was slightly elevated and UA examination did show possible infection. From that point, she was admitted to telemetry and medical floor for observation and a CT scan of the abdomen and pelvis was ordered with IV and oral contrast to find out more about the area. PAST MEDICAL HISTORY: Significant for kidney stone, depression/bipolar disorder and also posttraumatic stress disorder and chronic back and neck pain, on disability. PAST SURGICAL HISTORY: Both feet for plantar fascitis and spurs, . She had her laparoscopic surgery but does not know what kind. FAMILY HISTORY: Significant for diabetes on her dad's side. SOCIAL HISTORY: She is . She lives alone with her dad. She has 4 children, though they are grownup and she smokes about 1 pack per day for the last 20 years. She does not drink any alcohol and she is on disability. ALLERGIES: TO METOCLOPRAMIDE. MEDICATIONS: As an outpatient, she has been on ibuprofen 200 mg tablet 2 tablets as directed as needed, Lamictal 100 mg daily, lithium carbonate 900 mg p.o. q.p.m. and Imitrex 50 mg tablet as directed. REVIEW OF SYSTEMS: Other systemic review unremarkable except those mentioned in history of present illness. PHYSICAL EXAMINATION: GENERAL: On examination in the Emergency Room, she was not having any acute distress. She has some pain in the left lower quadrant. VITAL SIGNS: Temperature 36.7, pulse of 71, blood pressure 108/66, saturation 96% on room air. HEENT: Unremarkable. NECK: Supple. No JVD, no bruit. CHEST: Clear to auscultation bilaterally. HEART: S1, S2 regular. ABDOMEN: Soft, benign, mildly tender in the left lower quadrant. No guarding and/or rigidity. Bowel sounds present. PELVIC AND RECTAL: Done by ER physician was unremarkable. EXTREMITIES: Trace edema bilaterally. CENTRAL NERVOUS SYSTEM: Alert, awake, oriented x3 and no focal sensory and/or motor deficit is appreciated. LABORATORY DATA: Noted today - white count was 14.85, H&H 13.3/39.7, platelets was 312. Sodium 139, potassium 4.0, chloride 108, carbon dioxide 25, BUN 12, creatinine 0.88, random glucose 105. Liver function unremarkable. UA drug screen pending. [place] level is pending. C. trachomatis RNA and N. gonorrhoeae RNA pending. UA examination yellow, cloudy, occult blood 3+, leukocyte esterase trace, white count 10-30, bacteria 1+, sent for culture. IMPRESSION AND PLAN: 1. Left lower quadrant abdominal. At this time, the cause remains unknown, could be from adnexal or from Uterine origin. Internal hernia has to be ruled out. Doubt any diverticulitis at this time. Will get a CAT scan of the abdomen and pelvis with IV and oral contrast to delineate the area. Will get Toradol IV for pain control.May need a TRAFFIC CONTROL SIGNALER consult. 2. The left lower quadrant pain could be secondary to ongoing urinary tract infection. UA examination is possibly sensitive of urinary tract infection. She was started with intravenous ceftriaxone. Urine culture was sent. 3. Depression with bipolar disorder. Continue with her current medication. 4. Posttraumatic stress disorder. Continue with her current medications. No acute episode at this time. 5. Deep venous thrombosis prophylaxis with Lovenox. 6. Code status. She will be a full code that was discussed with her. In my clinical judgment, the beneficiary meets criteria as per CMS for 2 midnight stay in the hospital. CHRISTINE
[2016-10-01] MEDS ORDERED: CEFTRIAXONE SOD INJ 1,000 MG in DEXTROSE 5% 50ML 50 ML IV SCH (09:00)
[2016-10-03 02:32] LABS: CHLAMYDIA TRACH RNA*** NOT DETECTED (NOT DETECTED); GC (NEIS GONORRHOEAE)RNA** NOT DETECTED (NOT DETECTED)
== END 2016-09-30 23:25 | disposition home or self-care (01) ==
LOC: C.EDB 05:00 → ENRESERV 11:10 → C.MS2W 12:15
PROVIDERS: ADMIT Internal Medicine; ATTEND Internal Medicine
DX: R10.32 Left lower quadrant pain (principal); Z83.3 Family history of diabetes mellitus; F17.200 Nicotine dependence, unspecified, uncomplicated

== ENCOUNTER 2016-12-31 16:16 | Emergency (ER) | payer OTHER ==
[~2016-12-31] VITALS: Ht 162.6 cm; Wt 107.2 kg
[2016-12-31 17:01] VITALS: TEMP 36.9; Ht 162.6 cm; Wt 107.2 kg
[2016-12-31] MEDS ORDERED: ONDANSETRON INJ 2 MG/ML 2 ML VIAL IV STA (17:29)
[2016-12-31] MEDS ORDERED: SODIUM CHLORIDE 0.9% 1000ML 1,000 ML IV STA (17:29)
--- NOTE | 2016-12-31 17:35 | EMERGENCY ROOM VISIT NOTE ---
History Report prepared by Dwaine: Anthony Bryant Under the Supervision of: Dr. Samy Clarke M.D. First contact with patient: 17:20 Chief Complaint: ABDOMINAL PAIN Stated Complaint: ABDOMINAL PAIN, LIGHTHEADED, BLOOD IN STOOL History of Present Illness The patient is a 41 year old female who presents to the Emergency Room with complaints of waxing and waning left lower quadrant abdominal pain that began earlier this morning (around 10 am). She notes that last night, she was completely at baseline. When she woke up this morning, she began having some mild lower abdominal pain. She tried to have a bowel movement and became very diaphoretic and lightheaded. She was unable to have a bowel movement for about an hour. She was then successful, but it was a large amount of diarrhea. She then took a Percocet for her abdominal pain, but it did not help. She then tried to have another bowel movement, but noticed that it was only a small amount of blood. She had about 10 episodes of this today. She denies any fevers or vomiting. She denies any sick contacts or abnormal food exposures. She has never had diverticulitis. She has a past medical history of a , uterine ablation, and c-diff. Source of History: patient Onset: earlier this morning Position: abdomen (lower) Symptom Intensity: moderate Quality: ache Timing: worsening Associated Symptoms: + diaphoresis, + hematochezia, + diarrhea, No fevers, No vomiting Note: She is experiencing lightheadedness. Review of Systems See HPI for pertinent positives & negatives. A total of 10 systems reviewed and were otherwise negative. Past Medical & Surgical Medical Problems: (1) Kidney stones (2) Left lower quadrant abdominal pain of unknown etiology (3) UTI (urinary tract infection) Family History Cancer Diabetes mellitus Kidney disease Kidney stones Social History Smoking Status: Current Every Day Smoker Marital Status: single Housing Status: lives with family Occupation Status: unemployed Current/Historical Medications Scheduled Duloxetine Hcl (Cymbalta), Unknown Dose PO DAILY Scheduled PRN Oxycodone/Acetaminophen 5MG/325MG (Percocet 5MG/325MG), 1 TABLET PO Q6H PRN for Pain Allergies Coded Allergies: Metoclopramide (Verified Allergy, Unknown, tachycardia,dystonia, 12/31/16) Physical Exam Vital Signs Date Time Temp Pulse Resp B/P (MAP) Pulse Ox O2 Delivery O2 Flow Rate FiO2 12/31/16 18:15 72 16 118/69 95 Room Air 12/31/16 17:01 36.9 67 20 122/83 98 Room Air Physical Exam GENERAL: Patient is in no acute distress. HEENT: No acute trauma, normocephalic atraumatic, mucous membranes moist, no nasal congestion, no scleral icterus. NECK: No stridor, no adenopathy, no meningismus, trachea is midline. LUNGS: Clear to auscultation bilaterally, no wheeze, no rhonchi, breath sounds equal. HEART: Without murmurs gallops or rubs, regular rate and rhythm. ABDOMEN: Soft, lower abdominal tenderness mostly to the left, bowel sounds positive, no hernias, no peritonitis. RECTAL: Small hemorrhoids noted. No active bleeding seen. Digital exam reveals no mass or gross blood. EXTREMITIES: No cyanosis or edema, full range of motion of all the joints without pain or difficulty, no signs for acute trauma. NEUROLOGIC: Oriented x 3, no acute motor or sensory deficits, no focal weakness. SKIN: No rash, no jaundice, no diaphoresis. Medical Decision & Procedures ER Provider Diagnostic Interpretation: Radiology results as stated below per my review and radiologist interpretation: CT ABD/PELVIS IV AND ORAL CONT CLINICAL HISTORY: Abdominal pain. Possible diverticulitis. COMPARISON STUDY: 09/30/2016 TECHNIQUE: Following the IV administration of 117 mL of Optiray-320, CT scan of the abdomen and pelvis was performed from the lung bases to the proximal femurs. Images are reviewed in the axial, sagittal, and coronal planes. IV contrast was administered without complication. A dose lowering technique was utilized adhering to the principles of ALARA. CT DOSE: 1186.88 mGy.cm FINDINGS: Lower chest: There are lingular and right middle lobe atelectatic changes. Liver: There is mild hepatic steatosis. No focal masses are visualized. Gallbladder: Cholelithiasis Spleen: Normal in size and attenuation. Pancreas: Unremarkable. Adrenal glands: Unremarkable. Kidneys: There is a 7 mm hypodensity within the upper pole the right kidney likely representing a cyst. There are 2 subcentimeter hypodensities in the left kidney, also likely representing cysts. Bowel: There are no transition zones indicate bowel obstruction. There is no acute diverticulitis. The appendix appears normal. Peritoneum: There is no intraperitoneal free air or abdominal ascites. There is a tiny fat-containing umbilical hernia. Vasculature: The abdominal aorta is normal in course and caliber. Adenopathy: None. Pelvic viscera: The bladder, and pelvic viscera are unremarkable. Skeletal structures: No destructive osseous lesions are seen. IMPRESSION: 1. No acute abdominal or pelvic findings 2. Cholelithiasis 3. No evidence of bowel obstruction. No evidence of free air 4. Normal appendix. No evidence of acute diverticulitis. Electronically signed by: Nick Butler M.D. 12/31/2016 8:24 PM Dictated Date/Time: 12/31/2016 8:20 PM Laboratory Results 12/31/16 18:04 Red Blood Count 4.74, Mean Corpuscular Volume 91.1, Mean Corpuscular Hemoglobin 30.8, Mean Corpuscular Hemoglobin Concent 33.8, Mean Platelet Volume 10.0, Neutrophils (%) (Auto) 82.2, Lymphocytes (%) (Auto) 9.3, Monocytes (%) (Auto) 7.8, Eosinophils (%) (Auto) 0.1, Basophils (%) (Auto) 0.1, Neutrophils # (Auto) 17.76, Lymphocytes # (Auto) 2.00, Monocytes # (Auto) 1.68, Eosinophils # (Auto) 0.02, Basophils # (Auto) 0.03 12/31/16 18:04 Test 12/31/16 18:04 White Blood Count 21.59 K/uL (4.8-10.8) Red Blood Count 4.74 M/uL (4.2-5.4) Hemoglobin 14.6 g/dL (12.0-16.0) Hematocrit 43.2 % (37-47) Mean Corpuscular Volume 91.1 fL (80-100) Mean Corpuscular Hemoglobin 30.8 pg (25-34) Mean Corpuscular Hemoglobin Concent 33.8 g/dl (32-36) Platelet Count 279 K/uL (130-400) Mean Platelet Volume 10.0 fL (7.4-10.4) Neutrophils (%) (Auto) 82.2 % Lymphocytes (%) (Auto) 9.3 % Monocytes (%) (Auto) 7.8 % Eosinophils (%) (Auto) 0.1 % Basophils (%) (Auto) 0.1 % Neutrophils # (Auto) 17.76 K/uL (1.4-6.5) Lymphocytes # (Auto) 2.00 K/uL (1.2-3.4) Monocytes # (Auto) 1.68 K/uL (0.11-0.59) Eosinophils # (Auto) 0.02 K/uL (0-0.5) Basophils # (Auto) 0.03 K/uL (0-0.2) RDW Standard Deviation 44.2 fL (36.4-46.3) RDW Coefficient of Variation 13.3 % (11.5-14.5) Immature Granulocyte % (Auto) 0.5 % Immature Granulocyte # (Auto) 0.10 K/uL (0.00-0.02) Prothrombin Time 10.2 SECONDS (9.0-12.0) Prothromb Time International Ratio 1.0 (0.9-1.1) Activated Partial Thromboplast Time 27.4 SECONDS (21.0-31.0) Partial Thromboplastin Ratio 1.1 Anion Gap 9.0 mmol/L (3-11) Est Creatinine Clear Calc Drug Dose 113.8 ml/min Estimated GFR () 110.4 Estimated GFR (Non- 95.2 BUN/Creatinine Ratio 10.1 (10-20) Lactic Acid Level 2.2 mmol/L (0.4-2.0) Calcium Level 8.9 mg/dl (8.5-10.1) Total Bilirubin 0.2 mg/dl (0.2-1) Aspartate Amino Transf (AST/SGOT) 19 U/L (15-37) Alanine Aminotransferase (ALT/SGPT) 31 U/L (12-78) Alkaline Phosphatase 71 U/L (45-117) Total Protein 7.8 gm/dl (6.4-8.2) Albumin 3.7 gm/dl (3.4-5.0) Globulin 4.1 gm/dl (2.5-4.0) Albumin/Globulin Ratio 0.9 (0.9-2) Lipase 79 U/L (73-393) [place] Level < 0.2 mMOL/L (0.6-1.2) Date/Time Source Procedure Growth Status 12/31/16 16:00 Stool C.difficile Toxin B Gene (PCR) - Final No C. difficile toxin B gene detected Complete Laboratory results reviewed by me. Medications Administered Medications (Trade) Dose Ordered Sig/Solomon Route Start Time Stop Time Status Last Admin Dose Admin Ondansetron HCl (Zofran Inj) 4 mg NOW STAT IV 12/31/16 17:29 12/31/16 17:34 DC 12/31/16 18:35 4 MG Sodium Chloride 1,000 ml @ 999 mls/hr Q1H1M STAT IV 12/31/16 17:29 12/31/16 18:29 DC 12/31/16 17:10 999 MLS/HR Morphine Sulfate (MoRPHine SULFATE INJ) 4 mg Q30M PRN IV 12/31/16 17:30 01/14/17 17:29 12/31/16 20:38 4 MG ED Course 1720: The patient was evaluated in room C7. A complete history and physical exam was performed. 1728: Ordered Sodium Chloride 1000 ml @ 999 mls/hr IV, Zofran Inj 4 mg IV 0: Ordered Morphine Sulfate 4 mg IV 2044: Ordered Oxycodone HCl 1 homepack PO 2049: Reevaluated the patient. Discussed results and discharge instructions: She verbalized understanding and agreement. The patient is ready for discharge. Medical Decision Differential diagnosis includes but is not limited to colitis, diverticulitis, food-borne illness, bacterial intestinal infection, viral intestinal infection, anemia, and C-Diff. There is a significant leukocytosis at 21,000, this could be consistent with infection or just her pain. No significant anemia. No significant electrolyte abnormality, kidney failure or hepatitis. There is no pancreatitis. Lactic acid level is mildly elevated, likely consistent with dehydration. Stool C. difficile testing is negative, stool cultures are pending. Abdominal and pelvis CT does not show diverticulitis or colitis, there was no acute surgical process. No bowel obstruction. There was no coagulopathy. [place] level was not toxic. On exam, there was no peritonitis. The patient was not febrile or toxic. No gross blood by my digital rectal exam. Patient received IV morphine, IV saline and IV Zofran. She feels improved. The cause for these symptoms is unclear, she may have a viral illness, bacterial intestinal infection is also a consideration. Foodborne illness is possible. The patient does not appear toxic and would like to be discharged home, I think this is reasonable. She will use a bland diet, she was advised to stay well hydrated. Some oxycodone was provided for pain. [facility]. She was encouraged to return here for vomiting, fever, uncontrolled pain or worsening bleeding. Medication Reconcilliation Current Medication List: was personally reviewed by me Blood Pressure Screening Patient's blood pressure: Normal blood pressure Blood pressure disposition: Did not require urgent referral Impression Primary Impression: Leukocytosis Additional Impressions: Lower abdominal pain Bloody diarrhea Scribe Attestation The scribe's documentation has been prepared under my direction and personally reviewed by me in its entirety. I confirm that the note above accurately reflects all work, treatment, procedures, and medical decision making performed by me. Departure Information Dispostion Home / Self-Care [facility]errals [facility] Forms Call Back Authorization, HOME CARE DOCUMENTATION FORM, IMPORTANT VISIT INFORMATION Patient Instructions My [facility] Additional Instructions bland diet---crackers, soup, toast, gatorade may use otc immodium for persistent diarrhea tylenol for pain oxy ir 1-2 tab every 4 hours for severe pain we will call with positive stool culture results talk with your doctor about see GI for a possible colonoscopy return for fever, uncontrolled symptoms, vomiting or if worsening Problem Qualifiers Primary Impression: Leukocytosis Leukocytosis type: unspecified Qualified Codes: D72.829 - Elevated white blood cell count, unspecified
[2016-12-31] MEDS ORDERED: DULO60CA44 PO (17:40)
[2016-12-31] MEDS ORDERED: OXYC-57 PO (17:40)
[2016-12-31 18:22] LABS: BASO % 0.1 %; BASO ABS # 0.03 K/uL (0-0.2); COMPLETE YES; EOS % 0.1 %; HEMATOCRIT 43.2 % (37-47); IG% 0.5 %; LYMPH % 9.3 %; MEAN CELL VOLUME 91.1 fL (80-100); MEAN CORPUSCULAR HEMOGLOBIN 30.8 pg (25-34); MEAN CORPUSCULAR HGB CONC 33.8 g/dl (32-36); MONO % 7.8 %; NEUT % 82.2 %; PLATELET COUNT 279 K/uL (130-400); RED BLOOD COUNT 4.74 M/uL (4.2-5.4); WHITE BLOOD COUNT 21.59 K/uL (4.8-10.8)
[2016-12-31] MEDS: MoRPHine SULFATE 4 MG/ML 1 ML CARP\\VIAL IV PRN ×2 (18:35→20:38)
[2016-12-31 18:36] LABS: PARTIAL THROMBOPLASTIN RATIO 1.1; PROTHROMBIN TIME (PATIENT) 10.2 SECONDS (9.0-12.0)
[2016-12-31 18:42] LABS: BUN/CREATININE RATIO 10.1 (10-20); CALCIUM 8.9 mg/dl (8.5-10.1); CREATININE 0.77 mg/dl (0.60-1.20); POTASSIUM 4.2 mmol/L (3.5-5.1)
[2016-12-31 18:44] LABS: ALB/GLOB RATIO 0.9 (0.9-2)
--- NOTE | 2016-12-31 20:25 | DIAGNOSTIC IMAGING REPORT ---
CT ABD/PELVIS IV AND ORAL CONT CLINICAL HISTORY: Abdominal pain. Possible diverticulitis. COMPARISON STUDY: 09/30/2016 TECHNIQUE: Following the IV administration of 117 mL of Optiray-320, CT scan of the abdomen and pelvis was performed from the lung bases to the proximal femurs. Images are reviewed in the axial, sagittal, and coronal planes. IV contrast was administered without complication. A dose lowering technique was utilized adhering to the principles of ALARA. CT DOSE: 1186.88 mGy.cm FINDINGS: Lower chest: There are lingular and right middle lobe atelectatic changes. Liver: There is mild hepatic steatosis. No focal masses are visualized. Gallbladder: Cholelithiasis Spleen: Normal in size and attenuation. Pancreas: Unremarkable. Adrenal glands: Unremarkable. Kidneys: There is a 7 mm hypodensity within the upper pole the right kidney likely representing a cyst. There are 2 subcentimeter hypodensities in the left kidney, also likely representing cysts. Bowel: There are no transition zones indicate bowel obstruction. There is no acute diverticulitis. The appendix appears normal. Peritoneum: There is no intraperitoneal free air or abdominal ascites. There is a tiny fat-containing umbilical hernia. Vasculature: The abdominal aorta is normal in course and caliber. Adenopathy: None. Pelvic viscera: The bladder, and pelvic viscera are unremarkable. Skeletal structures: No destructive osseous lesions are seen. IMPRESSION: 1. No acute abdominal or pelvic findings 2. Cholelithiasis 3. No evidence of bowel obstruction. No evidence of free air 4. Normal appendix. No evidence of acute diverticulitis. Electronically signed by: Nick Butler M.D. 12/31/2016 8:24 PM Dictated Date/Time: 12/31/2016 8:20 PM
[2016-12-31] MEDS ORDERED: OPTIRAY 320 IV PRN (20:30)
[2016-12-31] MEDS ORDERED: OXYCODONE IR HOME PACK PO ONE (20:45)
[2016-12-31 20:50] VITALS: BP 129/79; PULSE 71; O2SAT 97
== END 2016-12-31 20:51 | disposition home or self-care (01) ==
LOC: C.EDB 16:16 → C.EDC 20:51
DX: D72.829 Elevated white blood cell count, unspecified (principal); R10.30 Lower abdominal pain, unspecified; R19.7 Diarrhea, unspecified; F17.200 Nicotine dependence, unspecified, uncomplicated; Z83.3 Family history of diabetes mellitus

== ENCOUNTER 2017-02-13 11:19 | Emergency (ER) | payer OTHER ==
[~2017-02-13] VITALS: Ht 162.6 cm; Wt 107.6 kg
[~2017-02-13 11:19] MED LIST changes: +DULO60CA44 PO; -IBUP-1050 PO; -LAMO100T16 PO; -LITH300T2 PO; +OXYC-57 PO; -SUMA50TA15 PO
[2017-02-13 11:21] VITALS: TEMP 36.4; Ht 162.6 cm; Wt 107.6 kg
[2017-02-13] MEDS ORDERED: ONDANSETRON INJ 2 MG/ML 2 ML VIAL IV STA (11:44)
[2017-02-13] MEDS ORDERED: SODIUM CHLORIDE 0.9% 1000ML 1,000 ML IV STA (11:44)
--- NOTE | 2017-02-13 12:13 | DIAGNOSTIC IMAGING REPORT ---
CHEST ONE VIEW PORTABLE HISTORY: 41 years-old Female CHEST PAIN acute atypical chest pain with chest tightness COMPARISON: CT abdomen and pelvis 12/31/2016 TECHNIQUE: Portable AP view of the chest FINDINGS: Cardiomediastinal and hilar silhouettes are within normal limits. No pneumothorax or pleural effusion. Linear subsegmental opacities of left lung base are noted. Bones of the chest appear grossly intact. IMPRESSION: Linear subsegmental opacities of the left lung base favor atelectasis. The above report was generated using voice recognition software. It may contain grammatical, syntax or spelling errors. Electronically signed by: Matt Ang M.D. 02/13/2017 12:11 PM Dictated Date/Time: 02/13/2017 12:10 PM
[2017-02-13] MEDS ORDERED: DOCU-94 PO (12:31)
[2017-02-13 12:33] LABS: BASO % 0.4 %; BASO ABS # 0.05 K/uL (0-0.2); COMPLETE YES; EOS % 2.9 %; HEMATOCRIT 39.3 % (37-47); IG% 0.6 %; LYMPH % 36.7 %; LYMPH ABS # 4.93 K/uL (1.2-3.4); MEAN CELL VOLUME 91.8 fL (80-100); MEAN CORPUSCULAR HEMOGLOBIN 30.6 pg (25-34); MEAN CORPUSCULAR HGB CONC 33.3 g/dl (32-36); MEAN PLATELET VOLUME 9.6 fL (7.4-10.4); MONO % 10.5 %; NEUT % 48.9 %; PLATELET COUNT 246 K/uL (130-400); RED BLOOD COUNT 4.28 M/uL (4.2-5.4); WHITE BLOOD COUNT 13.43 K/uL (4.8-10.8)
[2017-02-13 12:40] LABS: POINT OF CARE TROPONIN I < 0.030 ng/ml (0-0.045)
[2017-02-13 12:42] LABS: INR 0.9 (0.9-1.1); PROTHROMBIN TIME (PATIENT) 9.9 SECONDS (9.0-12.0)
[2017-02-13 12:51] LABS: ALT/SGPT 63 U/L (12-78); BLOOD UREA NITROGEN 12 mg/dl (7-18); BUN/CREATININE RATIO 14.9 (10-20); CALCIUM 9.1 mg/dl (8.5-10.1); CARBON DIOXIDE 24 mmol/L (21-32); CHLORIDE 105 mmol/L (98-107); CREATININE 0.78 mg/dl (0.60-1.20); GLUCOSE 94 mg/dl (70-99); POTASSIUM 3.7 mmol/L (3.5-5.1); SODIUM 137 mmol/L (136-145)
[2017-02-13] MEDS: MoRPHine SULFATE 4 MG/ML 1 ML CARP\\VIAL IV PRN ×2 (12:51→13:59)
[2017-02-13 12:56] LABS: ALKALINE PHOSPHATASE 81 U/L (45-117); AST/SGOT 23 U/L (15-37)
[2017-02-13] MEDS ORDERED: OPTIRAY 320 IV PRN (13:00)
[2017-02-13 13:11] LABS: MANUAL MICROSCOPIC REQUIRED? NO; REVIEW REQ? NO; URINE APPEARANCE CLEAR (CLEAR); URINE BILIRUBIN NEG (NEG); URINE COLOR YELLOW; URINE EPITHELIAL CELL AUTO >30 /lpf (0-5); URINE NITRITE NEG (NEG); URINE PH 6.5 (4.5-7.5); URINE SPECIFIC GRAVITY 1.012 (1.000-1.030); UROBILINOGEN NEG (NEG)
--- NOTE | 2017-02-13 13:44 | DIAGNOSTIC IMAGING REPORT ---
ULTRASOUND VENOUS DOPPLER LWR EXT BILA CLINICAL HISTORY: Atypical chest pain. Possible pulmonary embolus. COMPARISON STUDY: No previous studies for comparison. FINDINGS: Real-time and color flow Doppler imaging were performed. Flow was seen within the femoral, popliteal and calf veins with no intraluminal thrombus demonstrated. The saphenous vein is patent. IMPRESSION: No evidence of lower extremity DVT. Electronically signed by: Nick Butler M.D. 02/13/2017 1:43 PM Dictated Date/Time: 02/13/2017 1:42 PM
--- NOTE | 2017-02-13 13:58 | DIAGNOSTIC IMAGING REPORT ---
CT ANGIOGRAM OF THE CHEST CLINICAL HISTORY: Atypical chest pain. Recent surgery. COMPARISON STUDY: Chest radiograph dated 02/13/2017. TECHNIQUE: Following the IV administration of 93 cc of Optiray 320, CT angiogram of the chest was performed from the upper abdomen to the thoracic inlet utilizing the pulmonary embolus protocol. Images are reviewed in the axial, sagittal, and coronal planes. 3-D MIPS images are created and assessed. IV contrast was administered without complication. A dose lowering technique was utilized adhering to the principles of ALARA. CT DOSE: 521.43 mGy.cm FINDINGS: Thyroid: Imaged portions of the thyroid gland are normal in size and attenuation. Thoracic aorta: The thoracic aorta is normal in caliber and demonstrates standard 3-vessel arch anatomy. No dissection is seen. Pulmonary vasculature: The pulmonary trunk is normal in caliber. There are no filling defects identified in main, lobar, or segmental pulmonary branches to suggest pulmonary embolus. Heart: The heart is normal in size and configuration, and without pericardial effusion. Lungs and pleural spaces: There is no airspace consolidation or pleural effusion. Dependent atelectasis is observed. Mild diffuse peribronchial thickening suggests reactive airway disease. The trachea and central airways are clear. There are 3 small pulmonary nodules in the left lower lobe measuring up to 3 mm seen on images #83, #107, and #115. Mediastinum: There is no mediastinal lymphadenopathy. Radha: Clear. Axillae: There is no axillary lymphadenopathy. Upper abdomen: Partially visualized upper abdominal viscera is within normal limits. Skeletal structures: No lytic or blastic bony lesions are seen. There are healed right-sided rib fractures. IMPRESSION: 1. There is no evidence of pulmonary embolus in the main, lobar, or segmental pulmonary arteries. 2. There is no airspace consolidation or pleural effusion. 3. Mild diffuse bronchial thickening suggests reactive airway disease. Clinical correlation will be required. 4. There are 3 tiny pulmonary nodules in the left lower lobe measuring up to 3 mm. These are pathologically indeterminant but of low suspicion and can be followed if clinically warranted. See below. Please refer to below summary of Fleischner criteria recommendations for follow-up of incidental CT nodules (Trace Valerio, Guidelines for management of small pulmonary nodules detected on CT scans: A statement from the Fleischner Society, Radiology 237: [phone].) SOLID NODULES Solitary nodule size: <6 mm * low risk patients: no follow-up needed * high risk patients: optional CT at 12 months Solitary nodule size: 6-8 mm * low risk patients: follow-up at 6-12 months, then consider further follow-up at 18-24 months * high risk patients: initial follow-up CT at 6-12 months and then at 18-24 months if no change Solitary nodule size: >8 mm * either low or high risk patients - consider follow-up CT at 3 months, and/or CT-PET, and/or biopsy Multiple nodules size: <6 mm * low risk patients: no routine follow-up * high risk patients: optional CT at 12 months Multiple nodules size: 6-8 mm * low risk patients: follow-up at 3-6 months, then consider further follow-up at 18-24 months * high risk patients: follow-up at 3-6 months, then at 18-24 months if no change Multiple nodules size: >8 mm * low risk patients: follow-up at 3-6 months, then consider further follow-up at 18-24 months * high risk patients: follow-up at 3-6 months, then at 18-24 months if no change Note: newly detected indeterminate nodule in persons 35 years of age or older. * low risk patients: minimal or absent history of smoking and/or other known risk factors * high risk patients: history of smoking or of other known risk factors (e.g. first degree relative with lung cancer, or exposure to asbestos, radon, uranium) * if a nodule up to 8 mm is partly solid or is ground glass further follow-up is required after 24 months to exclude possible slow growing adenocarcinoma ([place]) SUBSOLID NODULES Solitary pure ground-glass nodule * nodule size <6 mm - no CT follow-up required * nodule size >=6 mm - follow-up CT at 6-12 months, then every 2 years until 5 years Solitary part-solid nodule * nodule size <6 mm - no CT follow-up required * nodule size >=6 mm - follow-up CT at 3-6 months. If unchanged, and solid component remains <6 mm, then annual follow-up for 5 years Multiple subsolid nodules * nodule size <6 mm - follow-up CT at 3-6 months, consider further follow-up at 2 and 4 years if stable * nodule size >=6 mm - follow-up CT at 3-6 months, subsequent management based on the most suspicious nodule(s) Electronically signed by: Samy Traore M.D. 02/13/2017 1:57 PM Dictated Date/Time: 02/13/2017 1:52 PM
[2017-02-13 14:24] VITALS: BP 114/68; PULSE 72; O2SAT 97
--- NOTE | 2017-02-13 20:04 | EMERGENCY ROOM VISIT NOTE ---
ED Visit Note First contact with patient: 11:29 Chief Complaint: Lower leg pain. History of Present Illness: Ms. Geiger is a 41-year-old white female who ambulates into the ED accompanied by female friend complaining of bilateral lower leg pain and an episode of chest pain earlier this morning. Historically patient is six-day status post hysterectomy and umbilical hernia repair. She reports she's been having some incisional pain but feeling well since her surgery. She reports upon waking this morning approximately 2-3 hours ago she noted that she was having bilateral lower leg pain. Since that time the pain has been constant. She describes her pain as a soreness sensation. At rest she rates her discomfort 3/10 and with ambulation her pain raises to 6/10. Her pain is nonradiating. It's located over the posterior aspect of the lower legs. She has taken her prescribed postoperative Percocet without relief of her discomfort. Additionally she reports this morning she woke up from sleep and went to the bathroom and upon arriving back from the bathroom she had a midsternal pressure sensation. She reports this was mild. She laid back into the bed and it resolved within 30 minutes without medication. Her pain has not returned. She denies fevers, chills, sweats, skin eruptions, skin color changes him a cough, wheezing, shortness of breath, palpitations, previous clots, claudication , recent extended travel, nausea, vomiting, diarrhea, urinary symptoms, hematuria, leg weakness/numbness/tingling. Review of Systems: As noted above in history of present illness. All body systems were reviewed and found to be negative as noted above. Past Medical History: As previously noted and and kidney stones, gastric ulcers , gallbladder disease. Current Medications: Cymbalta, Percocet and Colace. Allergies to Medications: Reglan. Social History: Patient is not employed; she feels safe in her home environment ; she admits to tobacco use and denies alcohol use. Physical Examination: Vital Signs: Date Time Temp Pulse Resp B/P (MAP) Pulse Ox O2 Delivery O2 Flow Rate FiO2 02/13/17 14:24 72 20 114/68 97 Room Air 02/13/17 13:56 70 16 114/73 97 Room Air 02/13/17 12:50 71 18 112/71 97 Room Air 02/13/17 12:11 71 02/13/17 12:09 69 18 93/57 96 Room Air 02/13/17 11:21 36.4 82 18 119/79 97 Room Air GENERAL: 41-year-old female in mild to moderate distress due to pain, nontoxic- appearing, afebrile and hemodynamically stable. NEUROLOGICAL: Awake, alert and oriented to person, place and time. Answering questions appropriately and following commands. Normal gait. Good hand eye coordination. No focal motor sensory deficits. SKIN: Warm, dry and pink. No soft tissue eruptions or trauma noted. HEENT: Atraumatic and normocephalic. PERRLA. Sclera white and conjunctiva pink. No drainage from naris. Oral cavity moist and pink. Pharynx is nonerythematous or edematous. Speech normal. No lymphadenopathy. Trachea midline. No jugular venous distention. BACK: No tenderness over the bony spine. No CVA tenderness. THORAX: Lungs sounds are clear to auscultation and equal bilaterally with symmetrical chest wall. No wheezing, rales or rhonchi. No crepitus, tenderness , subcutaneous air or deformities noted. HEART: Regular rate and rhythm. No gallops, rubs or murmurs are appreciated. ABDOMEN: Flat, soft and nontender. Positive bowel sounds in all quadrants. No guarding, rigidity or organomegaly. LOWER EXTREMITIES: Moves all extremities well on command and with purpose. All distal neurovascular statuses are intact and equal bilaterally. No calf tenderness or cords. ED Course: Patient is assessed as noted above. Patient's medication list was reviewed. Laboratory Testing: Test 02/13/17 12:20 02/13/17 12:21 02/13/17 12:43 Range/Units White Blood Count 13.43 4.8-10.8 K/uL Red Blood Count 4.28 4.2-5.4 M/uL Hemoglobin 13.1 12.0-16.0 g/dL Hematocrit 39.3 37-47 % Mean Corpuscular Volume 91.8 80-100 fL Mean Corpuscular Hemoglobin 30.6 25-34 pg Mean Corpuscular Hemoglobin Concent 33.3 32-36 g/dl Platelet Count 246 130-400 K/uL Mean Platelet Volume 9.6 7.4-10.4 fL Neutrophils (%) (Auto) 48.9 % Lymphocytes (%) (Auto) 36.7 % Monocytes (%) (Auto) 10.5 % Eosinophils (%) (Auto) 2.9 % Basophils (%) (Auto) 0.4 % Neutrophils # (Auto) 6.57 1.4-6.5 K/uL Lymphocytes # (Auto) 4.93 1.2-3.4 K/uL Monocytes # (Auto) 1.41 0.11-0.59 K/uL Eosinophils # (Auto) 0.39 0-0.5 K/uL Basophils # (Auto) 0.05 0-0.2 K/uL RDW Standard Deviation 45.5 36.4-46.3 fL RDW Coefficient of Variation 13.8 11.5-14.5 % Immature Granulocyte % (Auto) 0.6 % Immature Granulocyte # (Auto) 0.08 0.00-0.02 K/uL Prothrombin Time 9.9 9.0-12.0 SECONDS Prothromb Time International Ratio 0.9 0.9-1.1 Activated Partial Thromboplast Time 26.6 21.0-31.0 SECONDS Partial Thromboplastin Ratio 1.0 Sodium Level 137 136-145 mmol/L Potassium Level 3.7 3.5-5.1 mmol/L Chloride Level 105 98-107 mmol/L Carbon Dioxide Level 24 21-32 mmol/L Anion Gap 8.0 3-11 mmol/L Blood Urea Nitrogen 12 7-18 mg/dl Creatinine 0.78 0.60-1.20 mg/dl Est Creatinine Clear Calc Drug Dose 112.6 ml/min Estimated GFR () 108.7 Estimated GFR (Non- 93.8 BUN/Creatinine Ratio 14.9 10-20 Random Glucose 94 70-99 mg/dl Calcium Level 9.1 8.5-10.1 mg/dl Total Bilirubin 0.3 0.2-1 mg/dl Direct Bilirubin < 0.1 0-0.2 mg/dl Aspartate Amino Transf (AST/SGOT) 23 15-37 U/L Alanine Aminotransferase (ALT/SGPT) 63 12-78 U/L Alkaline Phosphatase 81 45-117 U/L Total Creatine Kinase 67 26-192 U/L Creatine Kinase MB < 0.5 0.5-3.6 ng/ml Creatine Kinase MB Ratio 0-3.0 Total Protein 7.6 6.4-8.2 gm/dl Albumin 3.4 3.4-5.0 gm/dl Lipase 91 73-393 U/L Bedside D-Dimer > 450 0-450 ng/mlFEU Bedside Troponin I < 0.030 0-0.045 ng/ml Urine Color YELLOW Urine Appearance CLEAR CLEAR Urine pH 6.5 4.5-7.5 Urine Specific [place] 1.012 1.000-1.030 Urine Protein NEG NEG Urine Glucose (UA) NEG NEG Urine Ketones NEG NEG Urine Occult Blood NEG NEG Urine Nitrite NEG NEG Urine Bilirubin NEG NEG Urine Urobilinogen NEG NEG Urine Leukocyte Esterase TRACE NEG Urine WBC (Auto) 1-5 0-5 /hpf Urine RBC (Auto) 0-4 0-4 /hpf Urine Hyaline Casts (Auto) 0 0-5 /lpf Urine Epithelial Cells (Auto) >30 0-5 /lpf Urine Bacteria (Auto) NEG NEG EKG: Was read by myself and reviewed with Dr. Conte; shows normal sinus rhythm with a ventricular rate of 63 bpm. Left axial deviation. No acute ischemic changes. Records were reviewed and no previous to compare. Chest x-ray: Was read by myself and the radiologist and shows no acute infiltrates, effusions or pneumothorax. There is a linear segmental opacity in the left lower lobe favoring atelectasis. Bilateral venous Doppler ultrasound: Was reviewed by myself and read by the radiologist showing no evidence of lower extremity DVT. Chest CTA: Was reviewed by myself and read by the radiologist showing no evidence of pulmonary emboli, no airspace consolidation or pleural effusion, mild diffuse bronchial thickening and 3 tiny pulmonary nodules in the left lower lobe of indeterminate pathology. Patient was hydrated with normal saline and received 4 mg of Zofran IV and 4 mg of morphine IV for her symptoms. Patient was reassessed multiple times during her stay in the emergency department. Patient's case was reviewed with Dr. Conte; we agreed on diagnostic approach, treatment, disposition and plan. Patient was educated about today's findings and instructed on her treatment plan ; she verbalized understanding and agreement with this plan. Clinical Impression: Bilateral calf pain. Transient chest discomfort. Decision-Making: Initially my differential diagnosis I considered DVT, muscle spasm, charley horse, pulmonary embolism, coronary ischemia and other causes. Patient's blood pressure: Not elevated. Blood pressure disposition: None. Disposition: Patient discharged home in stable condition accompanied by her sister; prior to departure she was reassessed and subjectively reported she was feeling slightly better. Plan: Patient is encouraged to continue her current medication. Patient also reported that she had prescribed ibuprofen and I encouraged her to alternate that with her codeine for pain. Patient was encouraged to follow-up with her family physician and her surgeon. Patient is encouraged return ED for worsening pain, return of chest pain, shortness of breath, fevers or any new/concerning symptoms.
== END 2017-02-13 14:37 | disposition home or self-care (01) ==
LOC: C.EDB 11:20 → C.EDC 14:37
DX: M79.661 Pain in right lower leg (principal); M79.662 Pain in left lower leg; R07.89 Other chest pain; Z87.442 Personal history of urinary calculi; K25.9 Gastric ulcer, unspecified as acute or chronic, without hemorrhage or perforation; K82.9 Disease of gallbladder, unspecified; Z79.899 Other long term (current) drug therapy; Z72.0 Tobacco use

== ENCOUNTER 2017-02-21 03:19 | Emergency (ER) | payer OTHER ==
[~2017-02-21] VITALS: Ht 162.6 cm; Wt 109.9 kg
[~2017-02-21 03:19] MED LIST changes: +DOCU-94 PO
[2017-02-21 03:21] VITALS: TEMP 36.5; Ht 162.6 cm; Wt 109.9 kg
[2017-02-21] MEDS ORDERED: ASPCH81X PO (03:32)
[2017-02-21] MEDS ORDERED: ALUMINUM/MAGNESIUM SUSP 30 ML UDC PO STA (03:34)
[2017-02-21] MEDS ORDERED: LIDOCAINE HCL 2% VISC SOLN 20 ML UDC PO STA (03:34)
[2017-02-21] MEDS ORDERED: ONDANSETRON INJ 2 MG/ML 2 ML VIAL IV STA (03:35)
[2017-02-21 04:01] LABS: HEMATOCRIT 36.9 % (37-47); MEAN CELL VOLUME 92.5 fL (80-100); MEAN CORPUSCULAR HEMOGLOBIN 30.6 pg (25-34); MEAN CORPUSCULAR HGB CONC 33.1 g/dl (32-36); MEAN PLATELET VOLUME 9.5 fL (7.4-10.4); PLATELET COUNT 267 K/uL (130-400); RED BLOOD COUNT 3.99 M/uL (4.2-5.4); WHITE BLOOD COUNT 14.62 K/uL (4.8-10.8)
[2017-02-21 04:22] LABS: BLOOD UREA NITROGEN 9 mg/dl (7-18); GLUCOSE 126 mg/dl (70-99)
[2017-02-21 04:23] LABS: ALT/SGPT 66 U/L (12-78); AST/SGOT 25 U/L (15-37); BUN/CREATININE RATIO 10.7 (10-20); CALCIUM 8.4 mg/dl (8.5-10.1); CARBON DIOXIDE 24 mmol/L (21-32); CHLORIDE 106 mmol/L (98-107); POTASSIUM 3.4 mmol/L (3.5-5.1); SODIUM 136 mmol/L (136-145)
[2017-02-21 04:25] LABS: ALKALINE PHOSPHATASE 77 U/L (45-117)
[2017-02-21 04:32] LABS: BASO % 0.3 %; BASO ABS # 0.04 K/uL (0-0.2); COMPLETE YES; EOS % 2.5 %; IG% 0.4 %; LYMPH % 33.3 %; LYMPH ABS # 4.87 K/uL (1.2-3.4); MONO % 9.3 %; NEUT % 54.2 %
[2017-02-21] MEDS ORDERED: KETOROLAC TROMETHAMINE 30 MG/ML VIAL IV STA (04:33)
[2017-02-21] MEDS ORDERED: POTASSIUM CHLORIDE 10 MEQ TABCR PO STA (05:13)
--- NOTE | 2017-02-21 06:32 | EMERGENCY ROOM VISIT NOTE ---
ED Visit Note First contact with patient: 03:29 I have personally evaluated and examined this patient. I agree with assessment and plan of Dyana Geiger PA-C. 41 yr old with left chest pain and RUQ pain of unclear etiology. Second time she is having large work-up without clear cause of symptoms and she will need to see PCP for further evaluation.
--- NOTE | 2017-02-21 06:51 | EMERGENCY ROOM VISIT NOTE ---
History First contact with patient: 03:29 Chief Complaint: CHEST PAIN Stated Complaint: STOMACH PAIN,CHEST TIGHTNESS AND PAIN Nursing Triage Summary: Pt reports she had some abdominal pain prior to going to bed at 1030 pm. She took two Percocet. Then 1 hour ago pt woke up with chest pain that radiated to left arm. Pt had Hysterectomy 3 weeks ago. Pt was here 1 week ago with same symptoms and worked up for PE. History of Present Illness The patient is a 41 year old female who presents to the Emergency Room with complaints of epigastric pain for the past hour that woke her up out of sleep. Patient states the pain radiates up her chest described as discomfort. Patient had [employer] steak and mashed his dinner last night. She does have gallstones. Pain currently 7 out of 10. Nothing makes it better or worse. Patient denies dyspnea, fever, chills, diaphoresis, vomiting, diarrhea, back pain, leg pain or swelling. Patient does feel nauseous. Patient was here last week with chest pain and calf pain and had a negative CTA. Patient does smoke. No prior heart disease. No prior heart testing. No family history of heart disease. Review of Systems See HPI for pertinent positives & negatives. A total of 10 systems reviewed and were otherwise negative. Past Medical/Surgical History Medical Problems: (1) Kidney stones (2) Left lower quadrant abdominal pain of unknown etiology (3) UTI (urinary tract infection) Hysterectomy, PTSD, anxiety Family History Cancer Diabetes mellitus Kidney disease Kidney stones Social History Smoking Status: Current Every Day Smoker Drug Use: none Marital Status: single Housing Status: lives with family Occupation Status: unemployed Current/Historical Medications Scheduled Aspirin (Aspirin Chewable), 81 MG PO HS Docusate Sodium (Colace), 100 MG PO BID Duloxetine Hcl (Cymbalta), Unknown Dose PO DAILY Scheduled PRN Oxycodone/Acetaminophen 5MG/325MG (Percocet 5MG/325MG), 1 TABLET PO Q6H PRN for Pain Physical Exam Vital Signs Date Time Temp Pulse Resp B/P (MAP) Pulse Ox O2 Delivery O2 Flow Rate FiO2 02/21/17 06:13 69 15 105/58 97 Room Air 02/21/17 05:00 71 18 107/65 95 Room Air 02/21/17 04:40 66 18 109/59 96 Room Air 02/21/17 03:35 71 02/21/17 03:21 36.5 81 16 128/85 97 Room Air Physical Exam VITALS: Vitals are noted on the nurse's note and reviewed by myself. Vital signs stable. GENERAL: Pleasant female, in no acute distress, nondiaphoretic, well-developed well-nourished. SKIN: The skin was without rashes, erythema, edema, or bruising. There is no tenting of the skin. Capillary reflex less than 2 seconds. HEAD: Normocephalic atraumatic. EARS: External auditory canals clear, tympanic membranes pearly arits without erythema or effusion bilaterally. EYES: Pupils equal round and reactive to light and accommodation. Conjunctivae without injection, sclerae without icterus. Extraocular movements intact. NOSE: Patent, turbinates without inflammation or discharge. MOUTH: Mucous membranes moist. Pharynx without erythema or exudate. Uvula midline. Airway patent. Tongue does not deviate. NECK: Supple without nuchal rigidity. No lymphadenopathy. No thyromegaly. Cervical spine is nontender. No JVD. HEART: Regular rate and rhythm without murmurs gallops or rubs. LUNGS: Clear to auscultation bilaterally without wheezes, rales or rhonchi. No dullness to percussion. No retractions or accessory muscle use. ABDOMEN: Positive bowel sounds x 4. Normal tympanic percussion. Soft, tender to palpation epigastric region, no CVA tenderness, without masses or organomegaly. No guarding or rebound tenderness. MUSCULOSKELETAL: No muscle atrophy, erythema, or edema noted. NEURO: Patient was alert and oriented to person place and time. Normal sensation to light and sharp touch. No focal neurological deficits. Medical Decision & Procedures Laboratory Results 02/21/17 03:40 Red Blood Count 3.99, Mean Corpuscular Volume 92.5, Mean Corpuscular Hemoglobin 30.6, Mean Corpuscular Hemoglobin Concent 33.1, Mean Platelet Volume 9.5, Neutrophils (%) (Auto) 54.2, Lymphocytes (%) (Auto) 33.3, Monocytes (%) (Auto) 9.3, Eosinophils (%) (Auto) 2.5, Basophils (%) (Auto) 0.3, Neutrophils # (Auto) 7.93, Lymphocytes # (Auto) 4.87, Monocytes # (Auto) 1.36, Eosinophils # (Auto) 0.36, Basophils # (Auto) 0.04 02/21/17 03:40 Test 02/21/17 03:40 02/21/17 05:42 White Blood Count 14.62 K/uL (4.8-10.8) Red Blood Count 3.99 M/uL (4.2-5.4) Hemoglobin 12.2 g/dL (12.0-16.0) Hematocrit 36.9 % (37-47) Mean Corpuscular Volume 92.5 fL (80-100) Mean Corpuscular Hemoglobin 30.6 pg (25-34) Mean Corpuscular Hemoglobin Concent 33.1 g/dl (32-36) Platelet Count 267 K/uL (130-400) Mean Platelet Volume 9.5 fL (7.4-10.4) Neutrophils (%) (Auto) 54.2 % Lymphocytes (%) (Auto) 33.3 % Monocytes (%) (Auto) 9.3 % Eosinophils (%) (Auto) 2.5 % Basophils (%) (Auto) 0.3 % Neutrophils # (Auto) 7.93 K/uL (1.4-6.5) Lymphocytes # (Auto) 4.87 K/uL (1.2-3.4) Monocytes # (Auto) 1.36 K/uL (0.11-0.59) Eosinophils # (Auto) 0.36 K/uL (0-0.5) Basophils # (Auto) 0.04 K/uL (0-0.2) RDW Standard Deviation 46.7 fL (36.4-46.3) RDW Coefficient of Variation 13.9 % (11.5-14.5) Immature Granulocyte % (Auto) 0.4 % Immature Granulocyte # (Auto) 0.06 K/uL (0.00-0.02) Anion Gap 6.0 mmol/L (3-11) Est Creatinine Clear Calc Drug Dose 111.1 ml/min Estimated GFR () 105.4 Estimated GFR (Non- 90.9 BUN/Creatinine Ratio 10.7 (10-20) Calcium Level 8.4 mg/dl (8.5-10.1) Total Bilirubin 0.2 mg/dl (0.2-1) Direct Bilirubin < 0.1 mg/dl (0-0.2) Aspartate Amino Transf (AST/SGOT) 25 U/L (15-37) Alanine Aminotransferase (ALT/SGPT) 66 U/L (12-78) Alkaline Phosphatase 77 U/L (45-117) Total Protein 7.0 gm/dl (6.4-8.2) Albumin 3.3 gm/dl (3.4-5.0) Lipase 125 U/L (73-393) Bedside Troponin I < 0.030 ng/ml (0-0.045) Medications Administered Medications (Trade) Dose Ordered Sig/Solomon Route Start Time Stop Time Status Last Admin Dose Admin Lidocaine HCl (Viscous Lidocaine 2% Soln) 10 ml NOW STAT PO 02/21/17 03:34 02/21/17 03:36 DC 02/21/17 03:42 10 ML Al Hydroxide/Mg Hydroxide (Maalox Susp) 30 ml NOW STAT PO 02/21/17 03:34 02/21/17 03:36 DC 02/21/17 03:42 30 ML Ondansetron HCl (Zofran Inj) 4 mg NOW STAT IV 02/21/17 03:35 02/21/17 03:36 DC 02/21/17 03:43 4 MG Ketorolac Tromethamine (Toradol Inj) 30 mg NOW STAT IV 02/21/17 04:33 02/21/17 04:34 DC 02/21/17 04:41 30 MG Potassium Chloride (Klor-Con M10) 10 meq NOW STAT PO 02/21/17 05:13 02/21/17 05:15 DC 02/21/17 05:33 10 MEQ ED Course Prior records/ancillary studies reviewed. Triage Nursing notes reviewed. The patient's history was concerning for chest pain. Differential diagnosis: Etiologies such as cardiac ischemia, aortic dissection, pulmonary embolism, pneumonia, pneumothorax, musculoskeletal, infections, pericarditis, myocarditis , esophageal rupture, gastrointestinal, as well as others were entertained. Physical examination: As above. ER treatment provided: GI cocktail, Zofran On reassessment the patient felt better. Diagnostic interpretation by me: The electrocardiogram was negative for pathologic change. Normal sinus, normal intervals, left axis deviation, rate of 77, no acute ST-T wave changes. Impression normal sinus rhythm with a left left axis deviation unchanged from prior per my interpretation The labs revealed negative troponin 2. Chronic leukocytosis. Mild hyperglycemia without DKA Imaging studies: Chest x-ray with no acute consolidation, pneumothorax or free air per my interpretation CT ANGIOGRAM OF THE CHEST CLINICAL HISTORY: Atypical chest pain. Recent surgery. COMPARISON STUDY: Chest radiograph dated 02/13/2017. TECHNIQUE: Following the IV administration of 93 cc of Optiray 320, CT angiogram of the chest was performed from the upper abdomen to the thoracic inlet utilizing the pulmonary embolus protocol. Images are reviewed in the axial, sagittal, and coronal planes. 3-D MIPS images are created and assessed. IV contrast was administered without complication. A dose lowering technique was utilized adhering to the principles of ALARA. CT DOSE: 521.43 mGy.cm FINDINGS: Thyroid: Imaged portions of the thyroid gland are normal in size and attenuation. Thoracic aorta: The thoracic aorta is normal in caliber and demonstrates standard 3-vessel arch anatomy. No dissection is seen. Pulmonary vasculature: The pulmonary trunk is normal in caliber. There are no filling defects identified in main, lobar, or segmental pulmonary branches to suggest pulmonary embolus. Heart: The heart is normal in size and configuration, and without pericardial effusion. Lungs and pleural spaces: There is no airspace consolidation or pleural effusion. Dependent atelectasis is observed. Mild diffuse peribronchial thickening suggests reactive airway disease. The trachea and central airways are clear. There are 3 small pulmonary nodules in the left lower lobe measuring up to 3 mm seen on images #83, #107, and #115. Mediastinum: There is no mediastinal lymphadenopathy. Radha: Clear. Axillae: There is no axillary lymphadenopathy. Upper abdomen: Partially visualized upper abdominal viscera is within normal limits. Skeletal structures: No lytic or blastic bony lesions are seen. There are healed right-sided rib fractures. IMPRESSION: 1. There is no evidence of pulmonary embolus in the main, lobar, or segmental pulmonary arteries. 2. There is no airspace consolidation or pleural effusion. 3. Mild diffuse bronchial thickening suggests reactive airway disease. Clinical correlation will be required. 4. There are 3 tiny pulmonary nodules in the left lower lobe measuring up to 3 mm. These are pathologically indeterminant but of low suspicion and can be followed if clinically warranted. See below. Please refer to below summary of Fleischner criteria recommendations for follow-up of incidental CT nodules (Trace Valerio, Guidelines for management of small pulmonary nodules detected on CT scans: A statement from the Fleischner Society, Radiology 237: [phone].) SOLID NODULES Solitary nodule size: <6 mm * low risk patients: no follow-up needed * high risk patients: optional CT at 12 months Solitary nodule size: 6-8 mm * low risk patients: follow-up at 6-12 months, then consider further follow-up at 18-24 months * high risk patients: initial follow-up CT at 6-12 months and then at 18-24 months if no change Solitary nodule size: >8 mm * either low or high risk patients - consider follow-up CT at 3 months, and/or CT-PET, and/or biopsy Multiple nodules size: <6 mm * low risk patients: no routine follow-up * high risk patients: optional CT at 12 months Multiple nodules size: 6-8 mm * low risk patients: follow-up at 3-6 months, then consider further follow-up at 18-24 months * high risk patients: follow-up at 3-6 months, then at 18-24 months if no change Multiple nodules size: >8 mm * low risk patients: follow-up at 3-6 months, then consider further follow-up at 18-24 months * high risk patients: follow-up at 3-6 months, then at 18-24 months if no change Note: newly detected indeterminate nodule in persons 35 years of age or older. * low risk patients: minimal or absent history of smoking and/or other known risk factors * high risk patients: history of smoking or of other known risk factors (e.g. first degree relative with lung cancer, or exposure to asbestos, radon, uranium) * if a nodule up to 8 mm is partly solid or is ground glass further follow-up is required after 24 months to exclude possible slow growing adenocarcinoma ([facility]) SUBSOLID NODULES Solitary pure ground-glass nodule * nodule size <6 mm - no CT follow-up required * nodule size >=6 mm - follow-up CT at 6-12 months, then every 2 years until 5 years Solitary part-solid nodule * nodule size <6 mm - no CT follow-up required * nodule size >=6 mm - follow-up CT at 3-6 months. If unchanged, and solid component remains <6 mm, then annual follow-up for 5 years Multiple subsolid nodules * nodule size <6 mm - follow-up CT at 3-6 months, consider further follow-up at 2 and 4 years if stable * nodule size >=6 mm - follow-up CT at 3-6 months, subsequent management based on the most suspicious nodule(s) Ultrasound was negative for acute cholecystitis per stat radiology Electronically signed by: Samy Traore M.D. Exam and history seem consistent with epigastric pain that could be related to biliary colic. Patient's been here twice this week for the same complaint. She is strongly encouraged to family care doctor this week for further evaluation and workup for ongoing symptoms. Patient denies history of diabetes , blood pressure, cholesterol or drug use. No family history of heart disease. She had a CTA a week ago that was negative. Patient was advised to follow-up family care for further workup for her ongoing chest pain symptoms and for her elevated blood sugar and leukocytosis that is chronic in nature. Patient did not have acute abdomen on exam. She is well-appearing. She felt much better after being medicated as above. By the evaluation outlined above emergent etiologies such as cardiac ischemia, aortic dissection, pulmonary embolism, pneumonia, pneumothorax, infections, pericarditis, myocarditis, gastrointestinal, as well as others were deemed relatively unlikely. The pt informed about the findings as listed above. All questions were answered and pleased with the treatment. Return instructions were outlined and the patient was discharged in stable condition. Referral: The patient was referred back to primary care physician for follow-up in 2 to 3 days for a recheck of the current condition. Case reviewed with my attending Medical Decision As above Medication Reconcilliation Current Medication List: was personally reviewed by me Blood Pressure Screening Patient's blood pressure: Normal blood pressure Impression Primary Impression: Epigastric abdominal pain Departure Information Dispostion Home / Self-Care Condition GOOD Referrals Mila Harden PA-C (PCP) Patient Instructions My [facility] Additional Instructions Your blood sugar was elevated today along with your white blood count. Follow- up with family care for this. Ibuprofen(Motrin, Advil) may be used for fever or pain. Use 600mg every six hours as needed. Take with food. Avoid using more than 2400mg in a 24 hour period. Do not use 2400mg per day for more than three consecutive days without physician direction. Prolonged inappropriate use can lead to stomach upset or ulcers. (AND/OR) Acetaminophen(Tylenol) may be used for fever or pain. Use 1000mg every six hours as needed. Avoid using more than 3000mg in a 24 hour period. Rest and drink plenty of fluids as tolerated. Continue current medications. Avoid strenuous activities and anything that worsens your pain. Resume normal activities once your symptoms resolve. Return to the ER immediately for worsening or persistent chest pain, abdominal pain, vomiting, fevers, chest pains, difficulty breathing, worsening of your condition, or as needed. Follow up with your primary physician in 2-3 days for a recheck of your current condition.
[2017-02-21 07:01] VITALS: BP 113/61; PULSE 71; O2SAT 95
--- NOTE | 2017-02-21 07:10 | DIAGNOSTIC IMAGING REPORT ---
SINGLE VIEW CHEST CLINICAL HISTORY: Atypical chest pain. FINDINGS: An AP, portable, upright chest radiograph is compared to chest x-ray and chest CT dated 02/13/2017. The examination is degraded by portable technique and apical lordotic positioning. The cardiomediastinal silhouette is unremarkable. The lungs and pleural spaces are clear. No pneumothorax is seen. The bony thorax is grossly intact. IMPRESSION: No active disease in the chest. Electronically signed by: Samy Traore M.D. 02/21/2017 7:08 AM Dictated Date/Time: 02/21/2017 7:08 AM
--- NOTE | 2017-02-21 07:20 | DIAGNOSTIC IMAGING REPORT ---
ABDOMINAL ULTRASOUND, RIGHT UPPER QUADRANT HISTORY: ruq pain. COMPARISON: Abdomen and pelvis CT 12/31/2016. FINDINGS: Pancreas: The pancreatic head and tail are obscured by overlying bowel gas. The remaining portions of the pancreas are within normal limits. Liver: The liver is echogenic consistent with fatty change. The liver is mildly enlarged measuring 19 cm in length. Gallbladder: There is a 1.1 cm stone at the gallbladder neck which does not move throughout the examination. Gallbladder wall is normal thickness. The technologist reported a negative sonographic Hutchinson's sign. CBD: 3.6 mm. Right kidney: No hydronephrosis. A 9 mm upper pole cyst. IMPRESSION: 1. A 1.1 cm stone within the gallbladder neck which could be impacted. No gallbladder wall thickening. 2. Normal caliber common bile duct. 3. Hepatic steatosis. Electronically signed by: Rome Song M.D. 02/21/2017 7:18 AM Dictated Date/Time: 02/21/2017 7:16 AM
== END 2017-02-21 07:02 | disposition home or self-care (01) ==
LOC: C.EDB 03:20 → C.EDA 07:02
DX: R10.13 Epigastric pain (principal); F41.9 Anxiety disorder, unspecified; F17.200 Nicotine dependence, unspecified, uncomplicated; Z87.442 Personal history of urinary calculi; Z87.440 Personal history of urinary (tract) infections; Z90.710 Acquired absence of both cervix and uterus; Z83.3 Family history of diabetes mellitus; Z84.1 Family history of disorders of kidney and ureter; Z79.82 Long term (current) use of aspirin; Z79.899 Other long term (current) drug therapy

== ENCOUNTER 2017-03-20 23:39 | Emergency (ER) | payer OTHER ==
[~2017-03-20] VITALS: Ht 165.1 cm; Wt 110.9 kg
[~2017-03-20 23:39] MED LIST changes: +ASPCH81X PO
[2017-03-20 23:52] VITALS: TEMP 36.7; Ht 165.1 cm; Wt 110.9 kg
[2017-03-21] MEDS ORDERED: CEPHALEXIN 500MG HOME PACK 1 EA BTL PO ONE (00:15)
[2017-03-21] MEDS ORDERED: CEPH500C2 PO (00:18)
[2017-03-21 00:25] VITALS: BP 127/75; PULSE 83; O2SAT 96
--- NOTE | 2017-03-21 00:27 | EMERGENCY ROOM VISIT NOTE ---
History First contact with patient: 00:04 Chief Complaint: OTHER COMPLAINT Stated Complaint: SORE ON ABDOMEN - BOIL LIKE History of Present Illness The patient is a 41 year old female who presents to the Emergency Room with complaints of infected boil to her abdominal wall for the past few days. No history of MRSA. Patient denies chest pain, dyspnea, abdominal pain, fevers, vomiting, nausea. She is tolerating by mouth fluids and food. Immunizations are current. She is an appointment next month with hematology for her chronic leukocytosis when she was seen last time here in the ER by myself and also cardiology. Review of Systems A 6 system review of systems was completed with positives and pertinent negatives listed in the HPI. Past Medical/Surgical History Medical Problems: (1) Kidney stones (2) Left lower quadrant abdominal pain of unknown etiology (3) UTI (urinary tract infection) Family History Cancer Diabetes mellitus Kidney disease Kidney stones Social History Smoking Status: Current Every Day Smoker Drug Use: none Marital Status: single Housing Status: lives with family Occupation Status: unemployed Current/Historical Medications Scheduled Aspirin (Aspirin Chewable), 81 MG PO HS Cephalexin Monohydrate (Keflex), 500 MG PO QID Docusate Sodium (Colace), 100 MG PO BID Duloxetine Hcl (Cymbalta), 60 MG PO DAILY Physical Exam Vital Signs Date Time Temp Pulse Resp B/P (MAP) Pulse Ox O2 Delivery O2 Flow Rate FiO2 03/20/17 23:52 36.7 82 18 122/67 96 Room Air Physical Exam VITALS: Vitals are noted on the nurse's note and reviewed by myself. Vital signs stable. GENERAL: pleasant female, in no acute distress, nondiaphoretic, well-developed well-nourished. SKIN: Capillary reflex less than 2 seconds. HEENT: Normocephalic. PERRLA. EOMI. Nares patent. Mucous membranes moist. Neck is supple without nuchal rigidity. HEART: Regular rate and rhythm without murmurs gallops or rubs. LUNGS: Clear to auscultation bilaterally without wheezes, rales or rhonchi. No retractions or accessory muscle use. ABDOMEN: Positive bowel sounds x 4. Normal tympanic percussion. Soft, right lower abdominal mall with pannus with 2 1 cm x 1 cm hard boiled with minimal surrounding erythema nontender, without active drainage or fluctuance without masses or organomegaly. Hutchinson sign negative. No guarding or rebound tenderness. MUSCULOSKELETAL: No gross musculoskeletal defects. NEURO: Patient was alert and oriented to person place and time. Normal sensation to light and sharp touch. No focal neurological deficits. Medical Decision & Procedures ED Course Prior records reviewed and summarized as above. Triage Nursing notes reviewed. The patient's history was concerning for swelling and redness of the skin. Differential diagnosis: Etiologies such as cellulitis, abscess, MRSA infection, necrotizing fasciitis , dermatitis, drug eruption, as well as others were entertained.. Physical examination: The physical examination was consistent with infected boil ER treatment provided: Home pack Keflex On reassessment the patient felt better. Diagnostics interpreted by me: Deferred This appears to be isolated to small boils to abdominal wall with minimal surrounding erythema without fluctuance. No drainable abscess. Patient had panus with some skin breakdown which could be contributing to the boils. Abdomen is nontender to palpation. She is afebrile and nontoxic. No history of MRSA. She is advised to warm compresses to the area and avoid squeezing or touching the area. She is advised take medications as directed, rest, follow- up family care in a few days here in the ER sooner for fevers, spreading infection, vomiting, worsening signs or symptoms or as needed. By the evaluation outlined above emergent etiologies such as abscess, necrotizing fasciitis, as well as others were deemed relatively unlikely. The pt informed about the findings as listed above. All questions were answered and pleased with the treatment. Return instructions were outlined and the patient was discharged in stable condition. Outpatient prescription management: keflex Referral: The patient was referred back to primary care physician for follow-up in 2 to 3 days for a recheck of the current condition. case reviewed with my Attending Medical Decision As above Medication Reconcilliation Current Medication List: was personally reviewed by me Blood Pressure Screening Patient's blood pressure: Normal blood pressure Impression Primary Impression: Abdominal wall cellulitis Additional Impression: Boil Departure Information Dispostion Home / Self-Care Condition GOOD Prescriptions Cephalexin Monohydrate (KEFLEX) 500 Mg Cap 500 MG PO QID for 9 Days, #36 CAP Prov: Mari Geiger .CHANTE 03/21/17 Forms WORK / SCHOOL INSTRUCTIONS, HOME CARE DOCUMENTATION FORM, IMPORTANT VISIT INFORMATION Patient Instructions Cellulitis - [facility], My [facility] Additional Instructions Cephalexin(Keflex) 500mg: Take one pill four times daily for 10 days for your skin infection. All antibiotics can cause diarrhea. If this occurs and you feel worse or it does not resolve in 1-2 days follow up with your doctor or return to the Emergency Department as this could be signs of serious underlying problems. Any medication can cause an allergic reaction, stop the pills immediately and return to the ER for rash, hives, breathing difficulties, or swelling. Keep area dry and clean. Ibuprofen(Motrin, Advil) may be used for fever or pain. Use 600mg every six hours as needed. Take with food. Avoid using more than 2400mg in a 24 hour period. Do not use 2400mg per day for more than three consecutive days without physician direction. Prolonged inappropriate use can lead to stomach upset or ulcers. (AND/OR) Acetaminophen(Tylenol) may be used for fever or pain. Use 1000mg every six hours as needed. Avoid using more than 3000mg in a 24 hour period. Warm compresses to the affected area 4 times daily for 15-20 minutes. Rest and drink plenty of fluids. Continue current medications. Return to the ER for severe pain, persistent fevers, spreading redness, or any worsening of your condition. Follow up with your primary physician within 2-3 days for a recheck of the current condition. Problem Qualifiers
--- NOTE | 2017-03-21 02:42 | EMERGENCY ROOM VISIT NOTE ---
ED Visit Note First contact with patient: 00:04 I have personally evaluated this patient examined her and reviewed the pertinent labs and data. I have discussed the case with Dyana Geiger, the physician multimedia production assistant and agree with the plan. Please refer to the PA note. This patient comes in with some pain in her groin area bilaterally and was found to have early skin infection. There is no drainable abscess. we will start her on antibiotics and have her follow up with her regular doctor return if increasing redness or warmth, any new problems or concerns.
== END 2017-03-21 00:18 | disposition home or self-care (01) ==
LOC: C.EDB 23:40
DX: L03.311 Cellulitis of abdominal wall (principal); L02.221 Furuncle of abdominal wall; F17.200 Nicotine dependence, unspecified, uncomplicated; Z87.440 Personal history of urinary (tract) infections; Z87.442 Personal history of urinary calculi; Z83.3 Family history of diabetes mellitus; Z84.1 Family history of disorders of kidney and ureter; Z79.82 Long term (current) use of aspirin

== ENCOUNTER → 2017-05-09 | Outpatient (CLI) | payer OTHER ==
[~2017-05-09] MED LIST changes: -OXYC-57 PO
--- NOTE | 2017-05-09 15:55 | MAMMOGRAPHY REPORT ---
BILATERAL DIGITAL SCREENING MAMMOGRAM TOMOSYNTHESIS WITH CAD: 05/09/2017 CLINICAL HISTORY: Routine screening. Patient has no complaints. TECHNIQUE: Breast tomosynthesis in addition to standard 2D mammography was performed. Current study was also evaluated with a Computer Aided Detection (CAD) system. COMPARISON: No prior exams were available for comparison. BREAST COMPOSITION: There are scattered areas of fibroglandular density in both breasts. FINDINGS: No suspicious mass, architectural distortion or cluster of microcalcifications is seen. IMPRESSION: ACR BI-RADS CATEGORY 1: NEGATIVE There is no mammographic evidence of malignancy. A 1 year screening mammogram is recommended. The pa tient will receive written notification of the results. Approximately 10% of breast cancers are not detected with mammography. A negative mammographic report should not delay biopsy if a clinically suggestive mass is present. Nita jefferson/lucrecia:05/09/2017 12:53:00 Substance Abuse Specialist: Megan MOCTEZUMA(Олег)(Judith), [facility] letter sent: Normal 1/2 BI-RADS Code: ACR BI-RADS Category 1: Negative
== END | disposition home or self-care (01) ==
LOC: C.MAMM 11:17
PROVIDERS: ATTEND Physician Assistant
DX: Z12.31 Encounter for screening mammogram for malignant neoplasm of breast (principal)